=== PATIENT | female | born 1945 | race Caucasian/White ===

== ENCOUNTER 2017-07-13 15:56 | Inpatient (IN) | payer OTHER ==
[2017-07-13] VITALS (26 sets, daily range): BP systolic 70–113; BP diastolic 42–70; PULSE 63–107; TEMP 36.9; O2SAT 71–99; Ht 165.1 cm; Wt 93.5 kg
[~2017-07-13] VITALS: Ht 165.1 cm; Wt 93.5 kg
[~2017-07-13 15:56] MED LIST: ASPI325T39 PO; CHOL100010 PO; MIDAZOLAM HCL 1 MG/ML 2ML VIAL ONE; MULT-506 PO; POTA99TA PO
[2017-07-13] MEDS ORDERED: NITROGLYCERIN/D5W 100MCG/ML 20ML SYR ONE (15:57)
[2017-07-13] MEDS ORDERED: NiCARDipine HCL INJ 2.5 MG/ML 10 ML AMP ONE (15:57)
[2017-07-13] MEDS ORDERED: HEPARIN SOD (PORCINE) 1000 UNIT/ML 10 ML VIAL ONE (15:57)
[2017-07-13] MEDS ORDERED: FENTANYL CITRATE INJ 50 MCG/1 ML 2 ML VIAL ONE (15:57)
[2017-07-13] MEDS ORDERED: CHOL1000 PO (16:20)
[2017-07-13] MEDS ORDERED: LOSA1TAB PO (16:25)
--- NOTE | 2017-07-13 16:41 | EMERGENCY ROOM VISIT NOTE ---
History Report prepared by Bret: Fercho Mckay Under the Supervision of: Dr. Seng Juarez D.O. First contact with patient: 15:54 Chief Complaint: HEART ALERT Stated Complaint: CHEST PAIN, HEART ALERT History of Present Illness The patient is a 72 year old female who presents to the Emergency Room with complaints of constant sharp chest pain beginning 4 hours ago. The patient states that 3 days ago she began to have a headache that is still persistent. She reports that today she was resting when she began to feel sharp chest pains in the middle of her chest. She notes that she called an ambulance and was given 324mg of Aspirin and 1 nitroglycerin en route to the hospital. The patient notes that she has a previous history of hypertension and has had a stress test. She complains of shortness of breath, cough, and cold symptoms. The patient denies any previous heart attack, stroke, cardiac catheterization, diabetes, and is not on any blood thinners. The patient reports she has a family history of heart attack (maternal). She states she does not use alcohol or tobacco. She rates her pain as a 6/10 in severity. Source of History: patient, EMS Onset: 1100 Position: chest Symptom Intensity: 6/10 Quality: sharp Timing: constant Associated Symptoms: + headache (central with no radiation), + cough, + SOB Note: Pt complains of cold symptoms. Review of Systems See HPI for pertinent positives & negatives. A total of 10 systems reviewed and were otherwise negative. Past Medical & Surgical Medical Problems: (1) Arthritis (2) Chronic kidney disease (CKD), stage III (moderate) (3) Dyslipidemia (4) Hypertension (5) Migraine headache Surgical Problems: (1) History of hysterectomy (2) History of tonsillectomy (3) History of tubal ligation (4) Status post cholecystectomy (5) Status post hysterectomy (6) Status post tonsillectomy Family History FH: heart attack Social History Smoking Status: Never Smoker Alcohol Use: occasionally Drug Use: none Marital Status: Housing Status: lives alone Occupation Status: retired Current/Historical Medications Scheduled Aspirin (Aspirin Ec), 325 MG PO DAILY Cholecalciferol (Vitamin D3), 1 TAB PO DAILY Losartan Potassium (Cozaar), 25 MG PO DAILY Multivitamin (Multivitamin), 1 TAB PO DAILY Potassium (Potassium), Unknown Dose PO DAILY Allergies Coded Allergies: Lisinopril (Verified Adverse Reaction, Intermediate, cough, 07/13/17) Physical Exam Vital Signs Date Time Temp Pulse Resp B/P (MAP) Pulse Ox O2 Delivery O2 Flow Rate FiO2 07/13/17 18:31 82 22 88/53 (56) 93 07/13/17 18:30 69 22 94 07/13/17 18:24 85 22 91/57 (72) 07/13/17 18:17 74 22 71/46 (57) 96 07/13/17 18:15 87 22 98 07/13/17 18:01 95/65 (73) 07/13/17 18:00 36.9 76 18 95/65 93 Nasal Cannula 2.0 07/13/17 17:55 82 16 97/58 (71) 93 Room Air 07/13/17 17:40 68 16 116/66 (83) 93 Room Air 07/13/17 16:06 37.0 68 22 100/57 97 Room Air 07/13/17 16:03 64 07/13/17 16:00 97 Room Air 07/13/17 16:00 97 Room Air Physical Exam GENERAL: Patient is awake, alert, and very anxious appearing. Patient is uncomfortable. EYES: The conjunctivae are clear. The pupils are round and reactive. EARS, NOSE, MOUTH AND THROAT: The nose is without any evidence of any deformity. Mucous membranes are moist tongue is midline NECK: The neck is nontender and supple. RESPIRATORY: Normal respiratory effort is noted there is no evidence of wheezing rhonchi or rales CARDIOVASCULAR: Tachycardiac rate and regular rhythm noted there no murmurs rubs or gallops normal S1 normal S2 GASTROINTESTINAL: The abdomen is soft. Bowel sounds are present in all quadrants. Abdomen is nontender MUSCULOSKELETAL/EXTREMITIES: There is no evidence of gross deformity full range of motion is noted in the hips and shoulders. Pedal edema bilaterally. SKIN: There is no obvious evidence of any rash. There are no petechiae, pallor or cyanosis noted. Skin cool and dry bilaterally. NEUROLOGIC: Patient is awake awake, alert, and oriented x3. Medical Decision & Procedures Laboratory Results Test 07/13/17 16:43 Kaolin Activated Coagulation Time 301 SECONDS (94-140) Laboratory results per my review. Medications Administered Medications (Trade) Dose Ordered Sig/Alice Route Start Time Stop Time Status Last Admin Dose Admin Midazolam HCl (Versed Inj) 2 mg STK-MED ONCE .ROUTE 07/13/17 15:56 07/13/17 15:57 DC 07/13/17 17:32 2 MG Fentanyl Citrate (Fentanyl Inj) 100 mcg STK-MED ONCE .ROUTE 07/13/17 15:57 07/13/17 15:58 DC 07/13/17 15:57 50 MCG Heparin Sodium (Porcine) (Heparin Iv Bolus) 10,000 unit STK-MED ONCE .ROUTE 07/13/17 15:57 07/13/17 15:58 DC 07/13/17 17:32 8,000 UNIT Ticagrelor (Brilinta Tab) 180 mg STK-MED ONCE PO 07/13/17 17:34 07/13/17 17:35 DC 07/13/17 17:41 180 MG Sodium Chloride 1,000 ml @ 100 mls/hr Q10H IV 07/13/17 18:30 08/12/17 18:29 07/13/17 18:30 100 MLS/HR ECG Indication: chest pain Rate (beats per minute): 76 Rhythm: normal sinus Findings: ST elevation (persistent elevation from previusly noted ST elevation) , other (3rd degree heart block; persistence of high lateral reciprocal changes ; ST segment elevation in inferior leads with improvement of low lateral ST elevation noted) Comparison ECG Date: 03/08/2016 Change: Prehospital EKG: Normal sinus 76, ST elevation in inferior and lateral leads; reciprocal changes in high lateral leads; findings consistent with acute inferior lateral wall VA. ED Course 1556: The patient was evaluated in room A1. A complete history and physical examination were performed. 1556: Versed Inj 2 mg. 1557: Nitroglycerin/DSw 100 mcg/ml 2,000 mcg, Heparin Sod/Ns 2 units/ml 3,000 units, Cardene IV 25 mg, and Heparin IV Bolus 10,000 units. 1600: I reevaluated and updated the patient. 1630: I discussed the patient's case with Dr. Gutierrez of Cardiology. The patient will be evaluated for further management. 1634: Upon reevaluation, the patient is doing well. I discussed results and treatment plan with the patient. She verbalizes agreement and understanding. I spoke with Dr. Gutierrez of Cardiology. The patient will be evaluated for further management and care. Medical Decision Differential diagnosis: Etiologies such as cardiac ischemia, aortic dissection, pulmonary embolism, pneumonia, pneumothorax, musculoskeletal, infections, pericarditis, myocarditis , esophageal rupture, gastrointestinal, as well as others were entertained. Nursing notes reviewed. Additional history was obtained from the prehospital personnel. The patient is a 72-year-old female who is been having what she describes as upper respiratory symptoms for the last few days. Today she started having chest pressure at rest. She states the pain became much worse. She called 911 and the patient was transported to the emergency department. I received a medical command phone call from the prehospital personnel. They were concerned because the patient's EKG appeared to be consistent with an ST segment elevation VA. I reviewed the patient's EKG and a heart alert was called. The patient received aspirin and nitroglycerin and normal saline solution prior to arrival. Her initial 12-lead EKG upon presentation appear to show continued ST segment elevation but mild improvement in the lateral leads. The patient continued to have discomfort. The patient was evaluated by the mold checker in the emergency department. She was felt to be a good candidate for cardiac catheterization. The patient was taken to the cardiac catheterization unit. The patient received further IV fluids in the emergency department. I discussed the patient's presentation with her. She was aware of the seriousness of her condition. Her EKG did show ST segment elevation but also showed significant Q waves. At this time I feel the patient's symptoms may have been ongoing longer than just this afternoon. She started having signs of cardiac electrical dysfunction with heart block. Likely this is consistent with the patient's acute suspected right-sided coronary lesion. Medication Reconcilliation Current Medication List: was personally reviewed by me Blood Pressure Screening Patient's blood pressure: Elevated blood pressure Blood pressure disposition: Elevated BP felt to be situational Consults Time Called: 1625 Consulting Physician: Dr. Gutierrez - Cardiology Returned Call: 1630 I discussed the patient's case with Dr. Gutierrez of Cardiology. The patient will be evaluated for further management. Impression Primary Impression: VA (myocardial infarction) Additional Impression: Left sided chest pain Scribe Attestation The scribe's documentation has been prepared under my direction and personally reviewed by me in its entirety. I confirm that the note above accurately reflects all work, treatment, procedures, and medical decision making performed by me. Departure Information Dispostion Being Evaluated By Hospitalist Jadon Geiger D.O. (PCP) Forms WORK / SCHOOL INSTRUCTIONS, HOME CARE DOCUMENTATION FORM, IMPORTANT VISIT INFORMATION Patient Instructions My [facility] Problem Qualifiers Primary Impression: VA (myocardial infarction) Myocardial infarction ST status: ST elevation myocardial infarction Involved coronary artery: other inferior wall coronary artery Qualified Codes: I21.19 - ST elevation (STEMI) myocardial infarction involving other coronary artery of inferior wall
[2017-07-13] MEDS ORDERED: TICAGRELOR 90 MG TAB PO ONE (17:34)
[2017-07-13] MEDS ORDERED: NITROGLYCERIN 0.4 MG SL PER TAB CHARGE SL PRN (18:30)
[2017-07-13] MEDS: SODIUM CHLORIDE 0.9% 1000ML 1,000 ML IV SCH (18:30)
[2017-07-13] MEDS ORDERED: ACETAMINOPHEN 325 MG TAB PO PRN (18:30)
[2017-07-13] MEDS ORDERED: SODIUM CHLORIDE 0.9% 1000ML 500 ML IV SCH (19:00)
[2017-07-13] MEDS ORDERED: NURSING VERBAL MED ORDER ONE ×2 (19:00→21:45)
--- NOTE | 2017-07-13 19:28 | History and Physical ---
History & Physical Date & Time of Service: Jul 13, 2017 at 19:25 . Chief Complaint: chest pain . Primary Care Physician: Jadon Mason D.O. . History of Present Illness Source: patient, clinic records, hospital records 72 YO female followed by Dr. Tasneem Kaiser for Internal Medicine. History of hypertension, dyslipidemia, and other problems noted below. Experiencing a severe bitemporal headache for the past 3 days. Developed chest pain this morning around 11:00 while lying in bed. Pain described as midsternal pain, not pleuritic, nonradiating. Symptoms associated with SOB. No associated diaphoresis, nausea, vomiting. Tried nonprescription analgesic without relief. Presented to ED ~ 15:50. EKG demonstrated inferior ST elevation. Heart alert called. Taken to lab specialist where she was found to have stenoses of RCA and circumflex. Drug-eluting stents placed in RCA and circumflex. Admitted to ICU after PCI. Mild residual chest pain at time of my assessment. . Past Medical/Surgical History Medical Problems: (1) Arthritis Status: Chronic (2) Chronic kidney disease (CKD), stage III (moderate) Status: Chronic (3) Dyslipidemia Status: Chronic (4) Hypertension Status: Chronic Surgical Problems: (1) Status post cholecystectomy Status: Chronic (2) Status post hysterectomy Status: Chronic (3) Status post tonsillectomy Status: Chronic . Family History MOTHER Coronary artery disease Cervical cancer Hypertension SISTER Heart disease GRANDFATHER Heart disease GRANDMOTHER Heart disease Social History Smoking Status: Never Smoker Alcohol Use: none Drug Use: none Marital Status: Occupational Status: retired Multi-Drug Resistant Organisms History of MDRO: No Allergies Coded Allergies: Lisinopril (Verified Adverse Reaction, Intermediate, cough, 07/13/17) Home Medications Scheduled Aspirin (Aspirin Ec), 325 MG PO DAILY Cholecalciferol (Vitamin D3), 1 TAB PO DAILY Losartan Potassium (Cozaar), 25 MG PO DAILY Multivitamin (Multivitamin), 1 TAB PO DAILY Potassium (Potassium), Unknown Dose PO DAILY Review of Systems Constitutional: + problem reported (? low grade temp), No weight loss Eyes: + problem reported (blurred vision) ENT: No nasal symptoms, No sore throat Respiratory: + shortness of breath, No cough Cardiovascular: + problem reported (as noted in HPI) Abdomen: + diarrhea (chronic, intermittent), No nausea, No vomiting, No GI bleeding Musculoskeletal: + joint pain (hand) Genitourinary - Female: No dysuria, No hematuria Neurologic: + problem reported (bitemporal headache) Endocrine: No excessive thirst, No excessive urination Hematologic / Lymphatic: + abnormal bleeding/bruising Integumentary: + rash (intermittent) Physical Exam Vital Signs Date Time Temp Pulse Resp B/P (MAP) Pulse Ox O2 Delivery O2 Flow Rate FiO2 07/13/17 17:55 82 16 97/58 (71) 93 Room Air 07/13/17 17:40 68 16 116/66 (83) 93 Room Air 07/13/17 16:06 37.0 68 22 100/57 97 Room Air 07/13/17 16:03 64 07/13/17 16:00 97 Room Air 07/13/17 16:00 97 Room Air General Appearance: WD/WN, no apparent distress Head: normocephalic, atraumatic Eyes: normal inspection, PERRL, EOMI, sclerae normal, + pertinent finding ( conjunctivae clear) ENT: normal ENT inspection, hearing grossly normal, pharynx normal Neck: supple, no adenopathy, thyroid normal, no JVD, trachea midline Respiratory/Chest: lungs clear, no respiratory distress, no accessory muscle use Cardiovascular: + pertinent finding (slightly irregular, I/ systolic murmur at base, no gallop appreciated) Abdomen/GI: normal bowel sounds, non tender, soft, no organomegaly Extremities/Musculoskelatal: normal inspection, no calf tenderness, normal capillary refill Neurologic/Psych: civilian technician II-XII nml as tested (PERRL, EOMI, no facial palsy, no dysarthria), no motor/sensory deficits (grossly intact), alert, normal mood/ affect, oriented x 3 Skin: normal color, warm/dry Lymphatic: no adenopathy (cervical) Diagnostics Laboratory Results Results Past 24 Hours Test 07/13/17 15:54 07/13/17 16:43 Range/Units Creatine Kinase MB Ratio 0-3.0 Kaolin Activated Coagulation Time 301 94-140 SECONDS EKG EKG performed at 15:59 reviewed and demonstrated sinus rhythm with Mobitz I 2nd degree heart block at 80 / minute, ST elevation inferiorly. . Impression Assessment and Plan INFERIOR ST ELEVATION TX PCI of RCA and circumflex with drug-eluting stents performed. Receiving aspirin, ticagrelor, metoprolol, losartan, atorvastatin. Further management per Cardiology. HYPERTENSION Usually managed with losartan. Metoprolol added to regimen. Follow and titrate Rx. DYSLIPIDEMIA Usually managed with fish oil. Check lipid profile. Started on atorvastatin. HEADACHE Recent onset of headaches which patient attributes to migraines. Most recent headache over past few days severe, bitemporal. Has had some blurred vision. Check ESR with morning labs to screen for possible temporal arteritis. Check CT of head when cardiac status allows. Consult Neuro if ongoing concerns. VTE PROPHYLAXIS Initially received IV heparin. Transition to SQ heparin for prophylaxis. DISPOSITION Expected discharge to home. Internal Medicine follow-up with Dr. Tasneem Kaiser. . VTE Prophylaxis VTE Risk Assessment Done? Y/N: Yes Risk Level: Moderate Given or contraindicated: Enoxaparin (Lovenox)SQ, Other Anticoagulation (IV heparin)
[2017-07-13 19:34] LABS: BASO % 0.1 %; BASO ABS # 0.01 K/uL (0-0.2); HEMATOCRIT 39.4 % (37-47); HEMOGLOBIN 13.3 g/dL (12.0-16.0); IG# 0.05 K/uL (0.00-0.02); LYMPH % 8.3 %; LYMPH ABS # 1.21 K/uL (1.2-3.4); MEAN CELL VOLUME 95.2 fL (80-100); MEAN CORPUSCULAR HEMOGLOBIN 32.1 pg (25-34); MEAN CORPUSCULAR HGB CONC 33.8 g/dl (32-36); MEAN PLATELET VOLUME 10.1 fL (7.4-10.4); MONO % 7.8 %; MONO ABS # 1.14 K/uL (0.11-0.59); NEUT % 83.5 %; NEUT ABS # 12.22 K/uL (1.4-6.5); PLATELET COUNT 233 K/uL (130-400); RED CELL DISTRIBUTION WIDTH CV 13.9 % (11.5-14.5); WHITE BLOOD COUNT 14.63 K/uL (4.8-10.8)
--- NOTE | 2017-07-13 19:55 | Critical Care Consultation ---
Critical Care Consultation Date of Consultation: Jul 13, 2017. Attending Physician: Michael Navarro M.D. Reason for Consultation: Code Heart Alert S/P Cardiac Cath History of Present Illness Camille Daniels is a 72-year-old female who presented to the emergency department today for midsternal chest pain at a 6\10 that started today around 11 AM. Patient does not report any associated symptoms such as diaphoresis, nausea, vomiting or shortness of breath. Pain did not radiate up her neck or down her arm. She has recently been suffering a bilateral temporal headache that has not resolved. In route emergency personnel performed EKG which demonstrated ST segment elevation code heart alert was called and upon arrival. Patient did receive 324 mg of oral aspirin and Nitroglycerin/DSw 100 mcg/ml 2, 000 mcg, Heparin Sod/Ns 2 units/ml 3,000 units, Cardene IV 25 mg, and Heparin IV Bolus 10,000 units. Patient was taken for cardiac catheterization by Dr. Gutierrez. Findings in director of cath lab are as follows: LM - Luminal irregularities LAD - 30% proximal to mid disease; 50-60% distal LAD before wraps around apex. Circumflex - Mid 50-60% diffuse disease; Subtotal occlusion of distal circumflex with RAISA 1-2 flow into small distal L-PLBs; Luminal irregularities in moderate caliber OM2 RCA - Acute 100% occlusion of early-mid RCA; post intervention 40-50% distal RCA stenosis; R-PDA with mild diffuse disease. LVEDP - 9 Upon examination this evening pt is sleeping in bed. She denies any ongoing issues aside from her headache of the past couple days. Pain is 3-4/10, at its worst she reports a 6/10. I did speak with Dr. Hensley regarding this earlier, he was suspicious of possible temporal arteritis and placed a sed rate with AM labs. Pt has been defiant at times and was refusing labs earlier in the evening. She denies recent URI symptom that were reported in the ED. The patient denies weight loss, fever, dizziness, muscle weakness, numbness, change in vision, sore throat, chest pain, palpitations, awareness of tachyarrhythmias, leg swelling, shortness of breath, cough, nausea, vomiting, bloody stools, diarrhea, constipation, abdominal pain, other changes in urine or bowel habits. Past Medical/Surgical History Medical Problems: Arthritis Bilateral headache Chronic kidney disease (CKD), stage III (moderate) Dyslipidemia Hypertension Hypotension Surgical Problems: Status post cholecystectomy Status post hysterectomy, oophorectomy Status post tonsillectomy Family History FH: heart attack Social History Smoking Status: Never Smoker Alcohol Use: none Drug Use: none Marital Status: Housing Status: lives alone Occupation Status: retired Allergies Coded Allergies: Broccoli (Verified Adverse Reaction, Intermediate, GI SYMPTOMS, 07/14/17) Cauliflower (Verified Adverse Reaction, Intermediate, GI SYMPTOMS, ) Egg (Verified Adverse Reaction, Intermediate, GI SYMPTOMS, 07/14/17) Gluten (Verified Adverse Reaction, Intermediate, GI SYMPTOMS, 07/14/17) Lactose. (Verified Adverse Reaction, Intermediate, GI SYMPTOMS, 07/14/17) Lisinopril (Verified Adverse Reaction, Intermediate, cough, 07/13/17) [place] (Verified Adverse Reaction, Intermediate, GI SYMPTOMS, 07/14/17) [place] Juice Soy Protein (Verified Adverse Reaction, Intermediate, GI SYMPTOMS, ) Home Medications Scheduled Aspirin (Aspirin Ec), 325 MG PO DAILY Cholecalciferol (Vitamin D3), 1 TAB PO DAILY Losartan Potassium (Cozaar), 25 MG PO DAILY Multivitamin (Multivitamin), 1 TAB PO DAILY Potassium (Potassium), Unknown Dose PO DAILY Current Inpatient Medications Current Inpatient Medications Medications (Trade) Dose Ordered Sig/Alice Route Start Time Stop Time Status Last Admin Dose Admin Nitroglycerin (Nitrostat Tab) 0.4 mg UD PRN SL 07/13/17 18:30 08/12/17 18:29 Sodium Chloride 1,000 ml @ 100 mls/hr Q10H IV 07/13/17 18:30 08/12/17 18:29 07/13/17 18:30 100 MLS/HR Aspirin (Ecotrin Tab) 81 mg QAM PO 07/14/17 09:00 08/13/17 08:59 Atorvastatin Calcium (Lipitor Tab) 80 mg QAM PO 07/14/17 09:00 08/13/17 08:59 Metoprolol Tartrate (Lopressor Tab) 25 mg Q12 PO 07/13/17 21:00 08/12/17 20:59 Acetaminophen (Tylenol Tab) 650 mg Q4H PRN PO 07/13/17 18:30 08/12/17 18:29 Losartan Potassium (coZAAR TAB) 25 mg DAILY PO 07/14/17 09:00 08/13/17 08:59 Multivitamins (Multivitamin Tab) 1 tab DAILY PO 07/14/17 09:00 08/13/17 08:59 Ticagrelor (Brilinta Tab) 90 mg BID PO 07/14/17 07:00 08/13/17 06:59 Review of Systems 12 systems reviewed and negative other than previously mentioned in the HPI. Physical Exam Date Time Temp Pulse Resp B/P (MAP) Pulse Ox O2 Delivery O2 Flow Rate FiO2 07/13/17 19:32 76 20 97/66 (73) 97 07/13/17 19:31 80 20 98/52 (66) 97 07/13/17 19:30 80 20 97 07/13/17 19:17 82 22 98/52 (66) 99 07/13/17 19:15 76 18 97 07/13/17 19:02 91 26 88/49 (66) 96 07/13/17 19:00 74 18 97 07/13/17 18:47 90 21 81/70 (76) 71 07/13/17 18:45 73 18 07/13/17 18:31 82 22 88/53 (56) 93 07/13/17 18:30 69 22 94 07/13/17 18:24 85 22 91/57 (72) 07/13/17 18:17 74 22 71/46 (57) 96 07/13/17 18:15 87 22 98 07/13/17 18:01 95/65 (73) 07/13/17 18:00 36.9 76 18 95/65 93 Nasal Cannula 2.0 07/13/17 17:55 82 16 97/58 (71) 93 Room Air 07/13/17 17:40 68 16 116/66 (83) 93 Room Air 07/13/17 16:06 37.0 68 22 100/57 97 Room Air 07/13/17 16:03 64 07/13/17 16:00 97 Room Air 07/13/17 16:00 97 Room Air Vital Signs - as noted Laboratory Data - as noted Physical Exam: General - NAD Eyes - PERRL, EOMI No icterus, gaze conjugate ENT - Mucosa moist, no lesions or candidiasis Neck - Supple, trachea midline, no masses or lymphadenopathy, no JVD or bruits Lungs - No paradoxical chest wall movement, clear to auscultation bilaterally, no wheezes, rales, or rhonchi Heart - Reg rate and rhythm, Continued ST elevations on telemetry, No murmur, rubs, clicks, or gallops appreciated Abdomen - normoactive BS present, no bruits noted, tympanic to percussion, soft , nontender, nondistended, no organomegaly Extremities - No edema, pedal pulses intact Neuro - A&OX4 Strength extremities equal and appropriate bilaterally Reflexes: normal and equal CN:PERRL, EOMI, no facial asymmetry, uvula/tongue midline Laboratory Results Last 24 Hours Test 07/13/17 15:54 07/13/17 16:43 07/13/17 19:27 Creatine Kinase MB Ratio Kaolin Activated Coagulation Time 301 SECONDS White Blood Count 14.63 K/uL Red Blood Count 4.14 M/uL Hemoglobin 13.3 g/dL Hematocrit 39.4 % Mean Corpuscular Volume 95.2 fL Mean Corpuscular Hemoglobin 32.1 pg Mean Corpuscular Hemoglobin Concent 33.8 g/dl Platelet Count 233 K/uL Mean Platelet Volume 10.1 fL Neutrophils (%) (Auto) 83.5 % Lymphocytes (%) (Auto) 8.3 % Monocytes (%) (Auto) 7.8 % Eosinophils (%) (Auto) 0.0 % Basophils (%) (Auto) 0.1 % Neutrophils # (Auto) 12.22 K/uL Lymphocytes # (Auto) 1.21 K/uL Monocytes # (Auto) 1.14 K/uL Eosinophils # (Auto) 0.00 K/uL Basophils # (Auto) 0.01 K/uL RDW Standard Deviation 48.0 fL RDW Coefficient of Variation 13.9 % Immature Granulocyte % (Auto) 0.3 % Immature Granulocyte # (Auto) 0.05 K/uL Diagnostic Results No imaging to date this admission Assessment & Plan (1) Bilateral headache (2) Hypotension (3) IN (myocardial infarction) (4) Chronic kidney disease (CKD), stage III (moderate) (5) Dyslipidemia (6) Hypertension PLAN: CV: * STEMI; Cardiac Cath Dr Gutierrez; 1 JORGE LUIS to Proximal RCA and 1 Distal Circumflex * Trend Troponin until peaks * Monitor on telemetry * Dopamine Titration per protocol * Dual Antiplatelet therapy x 1yr: Brilinta * ASA, Statin, Metoprolol * Cardiac Rehab Consult * ECHO * Hx of HTN * Hold home Losartan now, resume as blood pressures allow Neuro: * Continue Tylenol for headache * Follow up on sed rate in AM labs for temporal arteritis Resp: * Supplemental oxygen as required Fluids/Renal: * Cr Baseline: 1.1/ Now 1.4 * NSS @ 100mL/hr. hyponatremic 131 Na * No christian at this time. Monitor I&O's * Daily PRP * Monitor electrolytes and replace per protocol ID: Monitor fever curve, leukocytosis GI/Nutrition: * AHA/Gluten Free/Low Lactose Diet * Albumin 3.3 low * AST 190 elevated * Repeat LFTs in AM labs Heme: * H&H: 13.3/39.4; Plts: 233 * Coags: PT/INR: 10.5/1.0; aPTT: 61.6 Endocrine: Accu-Checks per protocol, started insulin infusion for 2 blood sugars greater than 180 or one greater than 250 CCT: 37 Minutes; This time is exclusive of all separately billable procedures. Thank you for involving us in the care of this patient. Please refer to Dr. Derick oCoper's addendum for further recommendations. I have personally evaluated and examined this patient. I agree with assessment and plan of Omar Rushing PA-C. Cardiogenic shock and YESENIA. Continue to wean pressors as tolerated. Problem Qualifiers (1) IN (myocardial infarction): Myocardial infarction ST status: ST elevation myocardial infarction Involved coronary artery: other inferior wall coronary artery Qualified Codes: I21.19 - ST elevation (STEMI) myocardial infarction involving other coronary artery of inferior wall
[2017-07-13 20:06] LABS: ALBUMIN 3.3 gm/dl (3.4-5.0); CALCIUM 8.6 mg/dl (8.5-10.1); CREATININE 1.44 mg/dl (0.60-1.20); POTASSIUM 3.8 mmol/L (3.5-5.1)
[2017-07-13 20:29] LABS: CKMB 41.8 ng/ml (0.5-3.6); TOTAL PROTEIN 7.6 gm/dl (6.4-8.2)
[2017-07-13 20:30] LABS: PTT PATIENT 61.6 SECONDS (21.0-31.0)
[2017-07-13] MEDS: METOPROLOL TARTRATE 25 MG TAB PO SCH (20:47)
--- NOTE | 2017-07-13 21:49 | Pre Sedation Assessment ---
Pre Sedation Assessment General Date of Sedation: Jul 13, 2017. Vital Signs Past 12 Hours Date Time Temp Pulse Resp B/P (MAP) Pulse Ox O2 Delivery O2 Flow Rate FiO2 07/13/17 20:05 88 19 90 07/13/17 20:02 85 19 91/59 (64) 95 07/13/17 20:00 Nasal Cannula 2.0 07/13/17 19:47 81 26 113/42 (66) 98 07/13/17 19:35 63 28 97 07/13/17 19:32 76 20 97/66 (73) 97 07/13/17 19:31 80 20 98/52 (66) 97 07/13/17 19:30 80 20 97 07/13/17 19:17 82 22 98/52 (66) 99 07/13/17 19:15 76 18 97 07/13/17 19:02 91 26 88/49 (66) 96 07/13/17 19:00 74 18 97 07/13/17 18:47 90 21 81/70 (76) 71 07/13/17 18:45 73 18 07/13/17 18:31 82 22 88/53 (56) 93 07/13/17 18:30 69 22 94 07/13/17 18:24 85 22 91/57 (72) 07/13/17 18:17 74 22 71/46 (57) 96 07/13/17 18:15 87 22 98 07/13/17 18:01 95/65 (73) 07/13/17 18:00 36.9 76 18 95/65 93 Nasal Cannula 2.0 07/13/17 17:55 82 16 97/58 (71) 93 Room Air 07/13/17 17:40 68 16 116/66 (83) 93 Room Air 07/13/17 16:06 37.0 68 22 100/57 97 Room Air 07/13/17 16:03 64 07/13/17 16:00 97 Room Air 07/13/17 16:00 97 Room Air Review Cardiovascular: regular rate, rhythm, no edema Lungs: chest non-tender, lungs clear, normal breath sounds Pre-Sedation Airway Assessment Smoking Status: Never Smoker Hx of Sleep Apnea: No Hx of difficult intubation: No Short Thick Neck: No Thyro-mental Distance: > 3 Finger Breadths Oral Cavity: WNL Mallampati Classification: Class II ASA Classification: Class IV Procedure Planning Contraindications for Sedation: None Current Medications Reviewed: Yes Notes The planned sedation has been discussed with the patient. Informed Consent was obtained. I have identified the patient, determined the appropriateness of sedation and have assessed the patient immediately prior to the procedure. All medicine(s) and interventions are by my order.
--- NOTE | 2017-07-13 21:49 | Post Sedation Assessment ---
Post Sedation Assessment General Date of Sedation Jul 13, 2017. Vital Signs: Vital Signs Past 12 Hours Date Time Temp Pulse Resp B/P (MAP) Pulse Ox O2 Delivery O2 Flow Rate FiO2 07/13/17 20:05 88 19 90 07/13/17 20:02 85 19 91/59 (64) 95 07/13/17 20:00 Nasal Cannula 2.0 07/13/17 19:47 81 26 113/42 (66) 98 07/13/17 19:35 63 28 97 07/13/17 19:32 76 20 97/66 (73) 97 07/13/17 19:31 80 20 98/52 (66) 97 07/13/17 19:30 80 20 97 07/13/17 19:17 82 22 98/52 (66) 99 07/13/17 19:15 76 18 97 07/13/17 19:02 91 26 88/49 (66) 96 07/13/17 19:00 74 18 97 07/13/17 18:47 90 21 81/70 (76) 71 07/13/17 18:45 73 18 07/13/17 18:31 82 22 88/53 (56) 93 07/13/17 18:30 69 22 94 07/13/17 18:24 85 22 91/57 (72) 07/13/17 18:17 74 22 71/46 (57) 96 07/13/17 18:15 87 22 98 07/13/17 18:01 95/65 (73) 07/13/17 18:00 36.9 76 18 95/65 93 Nasal Cannula 2.0 07/13/17 17:55 82 16 97/58 (71) 93 Room Air 07/13/17 17:40 68 16 116/66 (83) 93 Room Air 07/13/17 16:06 37.0 68 22 100/57 97 Room Air 07/13/17 16:03 64 07/13/17 16:00 97 Room Air 07/13/17 16:00 97 Room Air Post Procedure Recovery Score Activity: (2) Moves 4 extremities * Respiration: (2) Deep breath/cough Circulation: (2) +/-20% PreAnes Value Consciousness: (2) Fully Awake Oxygen Saturation: (2) > 92% On Room Air Post Anesthesia Score: 10 Discharge Sedation Level of Care: Fast Track Phase II Post Sedation Plan On clinical assessment, the patient appears to have tolerated the sedation without complications. Patient is recovering as anticipated. Patient will continue to be monitored by nursing and may be discharged when sedation discharge criteria are met per below protocol. Upon Completions of procedure and additional 15 minutes continue every 5 minute vital signs and the P.A.R. score; then discharge to a Phase I or Fast Track to Phase II per the following guidelines: * Discharge Patient to appropriate Phase II area if PAR is 8 or greater or return to pre- procedure baseline. The post - procedure orders will be as directed. * If PAR score is less than 8 or not return to pre-procedure baseline then patient will follow Phase I monitoring till PAR is reached for Phase II. The Phase I may be done in procedure room or may call to secure a Phase I area. * If naloxone or flumazenil are used for reversal, hold in Phase I for an additional 60 -120 minutes before discharge to Phase II. Please call the Sedation Physician to re-evaluate and complete post-note for discharge to Phase II area. Do NOT discharge from procedure sedation or Phase 1 until post- sedation evaluation note is complete by procedure /sedation MD Sedation Discharge Instructions to be given to the patient at discharge to home.
[2017-07-13] MEDS: DOPAMINE 400MG / D5W IV PRN (21:58)
[2017-07-13] MEDS ORDERED: METOCLOPRAMIDE HCL INJ 5 MG/ML 2 ML VIAL IV ONE (22:00)
--- NOTE | 2017-07-13 22:06 | Cardiac Catheterization ---
Procedure Note Procedure Date Jul 13, 2017. Pre-Procedure Diagnosis STEMI AUC Score 9 Post-Procedure Diagnosis Severe CAD Procedure(s) Performed Coronary Angiography, Left Heart Cath, Drug Eluting Stent, Femoral Artery Angiography Hiv/Aids Care Nurse Matt Pan Shover(s) Dale Estimated Blood Loss 15 Medication(s) Fentanyl, Heparin, Nicardipine, Nitroglycerin, Versed, Lidocaine 1% Summary of Findings Indication: STEMI/Heart Alert Access: 6Fr right HUMAN RESOURCES REPRESENTATIVE; 6Fr right CFV Catheters: JL4, JR4 guide, pigtail Findings: LM - Luminal irregularities LAD - 30% proximal to mid disease; 50-60% distal LAD before wraps around apex. Circumflex - Mid 50-60% diffuse disease; Subtotal occlusion of distal circumflex with RAISA 1-2 flow into small distal L-PLBs; Luminal irregularities in moderate caliber OM2 RCA - Acute 100% occlusion of early-mid RCA; post intervention 40-50% distal RCA stenosis; R-PDA with mild diffuse disease. LVEDP - 9 -- PCI -- Antithrombotic therapy: Heparin, Ticagrelor Procedure: RCA cannulated with JR4 guide Prowater wire passed across lesion into distal vessel Proximal/early-mid lesion predilated with 2.5 compliant balloon Dilated lesion stented with 2.75 x 28 Xience JORGE LUIS Stent post-dilated with 3.0 noncompliant balloon IC vasodilators administered for spasm Post procedure RAISA 3 flow, stent well expanded with minimal residual stenosis and no apparent cardiac complications. Persistent inferior ST elevations, decision made to proceed with subtotal occlusion of distal circumflex LM cannulated with EBU 3.5 guide Prowater wire passed across lesion into distal L-PLB Stenosis pre-dilated with 2.5 balloon Lesion stented with 2.5 x 18 Xience JORGE LUIS and post-dilated with stent balloon. IC vasodilators administered for spasm Post procedure RAISA 3 flow, stent well expanded with minimal residual stenosis and no apparent cardiac complications. Arterial Closure: TR Band Summary: 1. Inferior STEMI/Occluded early-mid RCA 2. Multi-vessel coronary artery disease - 50% mid, 99% distal circumflex. 3. Normal intracardiac filling pressure 4. Successful PCI of early-mid RCA with one JORGE LUIS (2.75 x 28 Xience JORGE LUIS, post- dilated with 3.0 NC). 5. Successful PCI of distal circumflex with one JORGE LUIS (2.5 x 18 Xience JORGE LUIS) Recommendations: Admit to ICU for continued monitoring Loaded with Ticagrelor 180mg in label maker Continue dual-antiplatelet therapy for 1 year Trend troponins until peak, Check Echo Uptitrate beta-tiffanie/ARB as BP allows High-dose statin Consult cardiac Rehab Hemodynamics Rest Ao: 94/33/58 Final Ao: 92/45/62 LV: 102/9 Recommendations PCI without planned CABG Specimens None Radiation Exposure (mGy) 3838 Contrast (mls) 180 V Fluids (cc crystalloids) 105 Drains None Anesthesia Moderate Procedural Complication(s) None Disposition ICU ACC Data Cardiac Status Clinical evaluation leading to the procedure CAD Presntation: STEMI Anginal Classification: CCS IV Heart Failure: No, NYHA Class: CCS I Cardiogenic Shock w/in 24Hrs: No Cardiac Arrest w/in 24Hrs: No Imaging studies past 6 months: No Stress studies past 6 months: No Diagnostic Status: Emergency Closure Device Percutaneous Entry Location: Femoral (CFV closed with mynx device) Closure Device: StarClose Recommendations: PCI without planned CABG PCI Indication: Immediate PCI for STEMI Lesion Segment Name: Mid RCA Culprit Artery: Yes Stenosis Prior to Rx (%): 100 Chronic Total Occlusion: No IVUS: No FFR: No Pre-Procedure RAISA Flow: 0 Previously Treated Lesion: No Lesion Complexity: Non-High/Non-C Lesion Length (mm): 20 Thrombus Present: Yes Bifurcation Lesion: No Guidewire Across Lesion: Yes Guidewire: Stenosis Post-Procedure (%): 0 Post-Procedure RAISA Flow: 3 Device(s) Deployed: Yes Lesion #2 Segment Name: distal circumflex Culprit Artery: No Stenosis Prior to Rx (%): 99 Chronic Total Occlusion: No IVUS: No FFR: No Pre-Procedure RAISA Flow: 1 Previously Treated Lesion: No Lesion Complexity: Non-High/Non-C Lesion Length (mm): 12 Thrombus Present: No Bifurcation Lesion: No Guidewire Across Lesion: Yes Guidewire: Stenosis Post-Procedure (%): 0 Post-Procedure RAISA Flow: 3 Device(s) Deployed: Yes Intraprocedure Events Significant Dissection: No Perforation: No
[2017-07-14] VITALS (80 sets, daily range): BP systolic 75–148; BP diastolic 46–102; PULSE 60–98; TEMP 36.4–37; O2SAT 89–97
[2017-07-14] MEDS ORDERED: SODIUM CHLORIDE 0.9% 500ML 500 ML IV SCH ×2 (03:00→05:30)
[2017-07-14] MEDS ORDERED: NURSING VERBAL MED ORDER ONE ×2 (03:00→05:15)
[2017-07-14] MEDS: SODIUM CHLORIDE 0.9% 1000ML 1,000 ML IV SCH ×3 (03:09→23:17)
[2017-07-14] MEDS: TICAGRELOR 90 MG TAB PO SCH ×2 (06:26→23:18)
[2017-07-14 06:51] LABS: BASO % 0.1 %; BASO ABS # 0.01 K/uL (0-0.2); IG# 0.07 K/uL (0.00-0.02); LYMPH % 7.3 %; LYMPH ABS # 1.28 K/uL (1.2-3.4); MEAN CELL VOLUME 93.8 fL (80-100); MEAN CORPUSCULAR HEMOGLOBIN 32.2 pg (25-34); MEAN CORPUSCULAR HGB CONC 34.3 g/dl (32-36); MEAN PLATELET VOLUME 10.3 fL (7.4-10.4); MONO % 8.1 %; MONO ABS # 1.42 K/uL (0.11-0.59); NEUT % 84.1 %; PLATELET COUNT 250 K/uL (130-400); RED CELL DISTRIBUTION WIDTH CV 13.7 % (11.5-14.5); RED CELL DISTRIBUTION WIDTH SD 47.2 fL (36.4-46.3); WHITE BLOOD COUNT 17.58 K/uL (4.8-10.8)
[2017-07-14 07:27] LABS: CREATININE 2.12 mg/dl (0.60-1.20); POTASSIUM 4.2 mmol/L (3.5-5.1)
[2017-07-14 07:39] LABS: PHOSPHORUS 4.7 mg/dl (2.5-4.9)
[2017-07-14 07:46] LABS: HEMOGLOBIN A1C 5.4 % (4.5-5.6)
--- NOTE | 2017-07-14 09:26 | Clinical Documentation Query ---
CLINICAL DOCUMENTATION QUERY 72-y/o female with STEMI. Query#1/3 In your clinical opinion is this patient being managed for: (X ) YESENIA ( ) YESENIA with ATN ( ) Not Agree ( ) Other explanation of clinical findings (Please Explain) ( ) Unable to determine (Please Define) ( ) Need to Discuss The medical record reflects the following clinical findings, treatment, and risk factors. Clinical Indicators: BUN 31, Creatinine 2.12, GFR 23.0, Hypotension 76/54 MAP 61. I/O's and nurses note reveal no urine output over last 8hrs. Treatment: Daily PRP's, IVF Boluses, IVF primary Risk Factors: Contrast dye required for cardiac catheterization, [place], Query #2/3 Since midnight 07/14 patient's respiratory status has declined. She has become increasingly hypoxic 89% on 3L and tachypneic as high as 30. In your clinical opinion is this patient being managed for: (X ) Acute respiratory failure with hypoxia ( ) Not Agree ( ) Other explanation of clinical findings (Please Explain) ( ) Unable to determine (Please Define) ( ) Need to Discuss The medical record reflects the following clinical findings, treatment, and risk factors. Clinical Indicators: As above Treatment: O2, ICU hemodynamic monitoring Risk Factors: STEMI, multiple fluid boluses without urine output. Query #3/3 Patient is hypotension failing fluid challenge and requiring IV pressor support. In your clinical opinion is this patient being managed for: (X ) Cardiogenic shock treated with IV Dopamine and IVF bolues. ( ) Not Agree ( ) Other explanation of clinical findings (Please Explain) ( ) Unable to determine (Please Define) ( ) Need to Discuss The medical record reflects the following clinical findings, treatment, and risk factors. Clinical Indicators: unresolved hypotension after IVF challenge. Hypotension of 76/54 MAP 61, Renal failure Treatment: IVF Boluses, IVF primary, IV Dopamine, ICU hemodynamic monitoring. Risk Factors: Age, STEMI, Please clarify and document your clinical opinion in the progress notes and discharge summary. Terms such as "probable", "suspected", "likely", "questionable", "possible", or "still to be ruled out" are acceptable. IF IN AGREEMENT, YOU MUST DOCUMENT ABOVE DIAGNOSTIC STATEMENT IN DAILY PROGRESS NOTES AND DISCHARGE SUMMARY. This document is not part of the patient's record. Thank You, Mark Streeter, RN [phone]
--- NOTE | 2017-07-14 09:28 | Clinical Documentation Query ---
Clinical Documentation Query 72-y/o female with STEMI. Query#1/3 In your clinical opinion is this patient being managed for: ( ) YESENIA ( ) YESENIA with ATN ( ) Not Agree ( ) Other explanation of clinical findings (Please Explain) ( ) Unable to determine (Please Define) ( ) Need to Discuss The medical record reflects the following clinical findings, treatment, and risk factors. Clinical Indicators: BUN 31, Creatinine 2.12, GFR 23.0, Hypotension 76/54 MAP 61. I/O's and nurses note reveal no urine output over last 8hrs. Treatment: Daily PRP's, IVF Boluses, IVF primary Risk Factors: Contrast dye required for cardiac catheterization, [place], Query #2/3 Since midnight 07/14 patient's respiratory status has declined. She has become increasingly hypoxic 89% on 3L and tachypneic as high as 30. In your clinical opinion is this patient being managed for: ( ) Acute respiratory failure with hypoxia ( ) Not Agree ( ) Other explanation of clinical findings (Please Explain) ( ) Unable to determine (Please Define) ( ) Need to Discuss The medical record reflects the following clinical findings, treatment, and risk factors. Clinical Indicators: As above Treatment: O2, ICU hemodynamic monitoring Risk Factors: STEMI, multiple fluid boluses without urine output. Query #3/3 Patient is hypotension failing fluid challenge and requiring IV pressor support. In your clinical opinion is this patient being managed for: ( ) Cardiogenic shock treated with IV Dopamine and IVF bolues. ( ) Not Agree ( ) Other explanation of clinical findings (Please Explain) ( ) Unable to determine (Please Define) ( ) Need to Discuss The medical record reflects the following clinical findings, treatment, and risk factors. Clinical Indicators: unresolved hypotension after IVF challenge. Hypotension of 76/54 MAP 61, Renal failure Treatment: IVF Boluses, IVF primary, IV Dopamine, ICU hemodynamic monitoring. Risk Factors: Age, STEMI, Please clarify and document your clinical opinion in the progress notes and discharge summary. Terms such as "probable", "suspected", "likely", "questionable", "possible", or "still to be ruled out" are acceptable. IF IN AGREEMENT, YOU MUST DOCUMENT ABOVE DIAGNOSTIC STATEMENT IN DAILY PROGRESS NOTES AND DISCHARGE SUMMARY. This document is not part of the patient's record. Thank You, Mark Streeter, RN [phone]
[2017-07-14] MEDS ORDERED: SODIUM CHLORIDE 0.9% 500ML 500 ML IV ONE (09:30)
--- NOTE | 2017-07-14 09:43 | DIAGNOSTIC IMAGING REPORT ---
CHEST ONE VIEW PORTABLE CLINICAL HISTORY: Myocardial infarction COMPARISON STUDY: 03/08/2016 FINDINGS: The heart is mildly enlarged. There is no failure. There is no focal pulmonary consolidation. There are no pleural effusions. There is borderline elevation of the right hemidiaphragm.[ IMPRESSION: No active disease in the chest. Electronically signed by: Kevon Weaver M.D. 07/14/2017 9:42 AM Dictated Date/Time: 07/14/2017 9:41 AM
[2017-07-14] MEDS: ASPIRIN 81 MG ECTAB PO SCH (09:45)
[2017-07-14] MEDS: ATORVASTATIN 40 MG TAB PO SCH (09:46)
[2017-07-14] MEDS: METOPROLOL TARTRATE 25 MG TAB PO SCH (09:46)
[2017-07-14] MEDS: MULTIVITAMIN TAB PO SCH (12:04)
[2017-07-14] MEDS: LOSARTAN POTASSIUM 25 MG TAB PO SCH (12:05)
[2017-07-14] MEDS: DOPAMINE 400MG / D5W IV PRN (12:08)
--- NOTE | 2017-07-14 13:16 | ECHOCARDIOGRAM REPORT ---
*NOTICE TO RECEIVING REPUBLICAN AGENCY This information is strictly Confidential and protected under [place] law. [place] law prohibits you from making any further disclosure of this information unless further disclosure is expressly permitted by the written consent of the person to whom it pertains or is authorized by law. A general authorization for the release of medical or other information is not sufficient for this purpose. Hospital accepts no responsibility if the information is made available to any other person, INCLUDING THE PATIENT. Interpretation Summary * Name: PETER NAGEL Study Date: 07/14/2017 07:43 AM BP: 83/53 mmHg * Patient Location: .MSICU\S\E111\S\1 HR: 85 * : 1945 (M/d/yyyy) Gender: Female Height: 64 in * Age: 72 yrs Ethnicity: [place] Weight: 200 lb * Ordering Physician: Francesco Gutierrez * Referring Physician: Self, Referred * Performed By: Angel Luis Wilson RCS * * Reason For Study: AMI, S/P PCI * BSA: 2.0 m2 * -- Conclusions -- * There is borderline concentric left ventricular hypertrophy. * Left ventricular systolic function is normal. * There are regional wall motion abnormalities as specified. * The right ventricle is mildly dilated. * The right ventricular systolic function is moderate to severely reduced. * Basal portions of the right ventricle appear akinetic * The left atrium is mildly dilated. * There is moderate tricuspid regurgitation. * Right ventricular systolic pressure is normal. * The inferior vena cava is mildly dilated. Procedure Details * A complete two-dimensional transthoracic echocardiogram was performed (2D, M-mode, Doppler and color flow Doppler). Left Ventricle * The left ventricle is normal in size. * There is borderline concentric left ventricular hypertrophy. * Ejection Fraction = 50-55%. * Left ventricular systolic function is normal. * There are regional wall motion abnormalities as specified. * Moderate hypokinesis involving the mostly basal inferior wall. Right Ventricle * The right ventricle is mildly dilated. * The right ventricular systolic function is moderate to severely reduced. Atria * The left atrium is mildly dilated. * Right atrial size is normal. Mitral Valve * The mitral valve anatomy is normal. * Significant mitral regurgitation is absent. Tricuspid Valve * The tricuspid valve anatomy is normal. * There is moderate tricuspid regurgitation. * Right ventricular systolic pressure is normal. Aortic Valve * The aortic valve is normal in structure and function. * The aortic valve is trileaflet. * No hemodynamically significant valvular aortic stenosis. * There is no significant aortic regurgitation. Great Vessels * The aortic root is normal size. Pericardium/Pleural * There is no pericardial effusion. Right Ventricle * Basal portions of the right ventricle appear akinetic Great Vessels * The inferior vena cava is mildly dilated. MMode 2D Measurements and Calculations IVSd 1.2 cm IVSs 1.5 cm LVIDd 3.6 cm LVIDs 2.8 cm LVPWd 1.2 cm LVPWs 1.6 cm IVS/LVPW 0.98 FS 22.7 % EDV(Teich) 55.1 ml ESV(Teich) 29.4 ml EF(Teich) 46.6 % EDV(cubed) 47.4 ml ESV(cubed) 21.8 ml EF(cubed) 53.9 % % IVS thick 29.5 % % LVPW thick 29.5 % LV mass(C)d 142.4 grams LV mass(C)dI 72.8 grams/m\S\2 LV mass(C)s 153.4 grams LV mass(C)sI 78.4 grams/m\S\2 SV(Teich) 25.7 ml SI(Teich) 13.1 ml/m\S\2 SV(cubed) 25.5 ml SI(cubed) 13.0 ml/m\S\2 Ao root diam 3.2 cm Ao root area 8.2 cm\S\2 ACS 1.8 cm LA dimension 4.4 cm asc Aorta Diam 3.1 cm LA/Ao 1.4 LVAd ap4 25.4 cm\S\2 LVLd ap4 7.9 cm EDV(MOD-sp4) 70.0 ml EDV(sp4-el) 68.8 ml LVAs ap4 15.9 cm\S\2 LVLs ap4 7.2 cm ESV(MOD-sp4) 32.0 ml ESV(sp4-el) 29.8 ml EF(MOD-sp4) 54.2 % EF(sp4-el) 56.6 % EDV(MOD-sp2) 91.0 ml ESV(MOD-sp2) 43.0 ml EF(MOD-sp2) 52.7 % SV(MOD-sp4) 37.9 ml SI(MOD-sp4) 19.4 ml/m\S\2 SV(MOD-sp2) 48.0 ml SI(MOD-sp2) 24.5 ml/m\S\2 SV(sp4-el) 39.0 ml SI(sp4-el) 19.9 ml/m\S\2 Doppler Measurements and Calculations MV E max sienna 82.0 cm/sec MV A max sienna 69.6 cm/sec MV E/A 1.2 MV P1/2t max sienna 77.2 cm/sec MV P1/2t 91.0 msec MVA(P1/2t) 2.4 cm\S\2 MV dec slope 248.5 cm/sec\S\2 MV dec time 0.17 sec Ao V2 max 130.4 cm/sec Ao max PG 7.1 mmHg Ao max PG (full) 3.5 mmHg LV V1 max PG 3.5 mmHg LV V1 max 91.5 cm/sec PA V2 max 101.4 cm/sec PA max PG 4.1 mmHg PI max sienna 115.5 cm/sec PI max PG 5.3 mmHg PI dec slope 133.9 cm/sec\S\2 PI P1/2t 252.7 msec TR max sienna 204.6 cm/sec
--- NOTE | 2017-07-14 14:51 | Progress Note ---
Medicine Progress Note Date & Time of Visit: Jul 14, 2017 at 14:33. Subjective Pt was seen and examined Lying in bed with no distress Pt said that she feels much better She said that her headache and chest pain resolved Denies any palpitation, dizziness and SOB Objective Last 8 Hrs Date Time Temp Pulse Resp B/P (MAP) Pulse Ox O2 Delivery O2 Flow Rate FiO2 07/14/17 11:45 Nasal Cannula 3.0 07/14/17 11:32 36.7 98 28 113/73 (86) 94 Nasal Cannula 3.0 07/14/17 11:30 84 21 94 07/14/17 11:01 75 24 126/88 (101) 93 07/14/17 11:00 81 28 96 07/14/17 10:31 83 28 121/79 (93) 94 07/14/17 10:30 82 25 93 07/14/17 10:02 87 22 131/67 (88) 92 07/14/17 10:00 81 26 92 07/14/17 09:32 81 25 119/65 (83) 93 07/14/17 09:30 83 30 91 07/14/17 09:02 93 25 121/61 (81) 92 07/14/17 09:00 85 16 92 07/14/17 08:30 76 24 92 07/14/17 07:50 75 30 76/54 (61) 89 Nasal Cannula 3.0 07/14/17 07:45 60 27 92 07/14/17 07:32 36.5 81 21 75/59 (64) 94 Nasal Cannula 3.0 07/14/17 07:30 Nasal Cannula 3.0 07/14/17 07:30 82 26 94 07/14/17 07:15 71 23 92 07/14/17 07:02 74 25 99/69 (79) 95 07/14/17 07:00 68 25 92 Physical Exam: General- No acute distress Head- atraumatic Eyes- PERRL, EOMI ENT- oropharynx clear Neck- supple, no JVD Lungs- No wheezing Heart- regular rhythm Abdomen- normal bowel sounds, soft Extremities- No calf tenderness Neuro- alert, oriented x 3; PERRL, EOMI; no facial palsy Skin- warm & dry Laboratory Results: Last 24 Hours Test 07/13/17 16:43 07/13/17 19:27 07/14/17 06:42 07/14/17 11:31 Kaolin Activated Coagulation Time 301 SECONDS White Blood Count 14.63 K/uL 17.58 K/uL Red Blood Count 4.14 M/uL 3.73 M/uL Hemoglobin 13.3 g/dL 12.0 g/dL Hematocrit 39.4 % 35.0 % Mean Corpuscular Volume 95.2 fL 93.8 fL Mean Corpuscular Hemoglobin 32.1 pg 32.2 pg Mean Corpuscular Hemoglobin Concent 33.8 g/dl 34.3 g/dl Platelet Count 233 K/uL 250 K/uL Mean Platelet Volume 10.1 fL 10.3 fL Neutrophils (%) (Auto) 83.5 % 84.1 % Lymphocytes (%) (Auto) 8.3 % 7.3 % Monocytes (%) (Auto) 7.8 % 8.1 % Eosinophils (%) (Auto) 0.0 % 0.0 % Basophils (%) (Auto) 0.1 % 0.1 % Neutrophils # (Auto) 12.22 K/uL 14.80 K/uL Lymphocytes # (Auto) 1.21 K/uL 1.28 K/uL Monocytes # (Auto) 1.14 K/uL 1.42 K/uL Eosinophils # (Auto) 0.00 K/uL 0.00 K/uL Basophils # (Auto) 0.01 K/uL 0.01 K/uL RDW Standard Deviation 48.0 fL 47.2 fL RDW Coefficient of Variation 13.9 % 13.7 % Immature Granulocyte % (Auto) 0.3 % 0.4 % Immature Granulocyte # (Auto) 0.05 K/uL 0.07 K/uL Prothrombin Time 10.5 SECONDS Prothromb Time International Ratio 1.0 Activated Partial Thromboplast Time 61.6 SECONDS Partial Thromboplastin Ratio 2.4 Sodium Level 131 mmol/L 133 mmol/L Potassium Level 3.8 mmol/L 4.2 mmol/L Chloride Level 98 mmol/L 101 mmol/L Carbon Dioxide Level 26 mmol/L 20 mmol/L Anion Gap 7.0 mmol/L 12.0 mmol/L Blood Urea Nitrogen 23 mg/dl 31 mg/dl Creatinine 1.44 mg/dl 2.12 mg/dl Est Creatinine Clear Calc Drug Dose 41.6 ml/min 28.3 ml/min Estimated GFR () 42.5 26.7 Estimated GFR (Non- 36.7 23.0 BUN/Creatinine Ratio 15.7 14.5 Random Glucose 98 mg/dl 144 mg/dl Calcium Level 8.6 mg/dl 8.0 mg/dl Total Bilirubin 0.8 mg/dl Direct Bilirubin 0.2 mg/dl Aspartate Amino Transf (AST/SGOT) 190 U/L Alanine Aminotransferase (ALT/SGPT) 56 U/L Alkaline Phosphatase 93 U/L Total Creatine Kinase 982 U/L Creatine Kinase MB 41.8 ng/ml Creatine Kinase MB Ratio 4.3 Troponin I 64.700 ng/ml 39.500 ng/ml Pro-B-Type Natriuretic Peptide 5375 pg/ml Total Protein 7.6 gm/dl Albumin 3.3 gm/dl Lipase 141 U/L Erythrocyte Sedimentation Rate 81 mm/hr Estimated Average Glucose 108 mg/dl Hemoglobin A1c 5.4 % Phosphorus Level 4.7 mg/dl Magnesium Level 2.2 mg/dl Triglycerides Level 151 mg/dl Cholesterol Level 167 mg/dl HDL Cholesterol 42 mg/dl LDL Cholesterol, Calculated 95 mg/dl VLDL Cholesterol, Calculated 30 mg/dl Cholesterol/HDL Ratio 4.0 Bedside Glucose 145 mg/dl Test 07/14/17 14:00 Date/Time Source Procedure Growth Status 07/13/17 18:10 Nasal MRSA DNA Surveillance Screen - Final Specimen Negative for MRSA by DNA Probe Complete Assessment & Plan INFERIOR ST ELEVATION [place] S/P cardiac cath done yesterday by Dr. Gutierrez PCI of RCA and circumflex with drug-eluting stents performed. Continue aspirin, ticagrelor, metoprolol, losartan and atorvastatin. Denies any chest pain Continue monitor Echo showed * There is borderline concentric left ventricular hypertrophy. * Left ventricular systolic function is normal. * There are regional wall motion abnormalities as specified. * The right ventricle is mildly dilated. * The right ventricular systolic function is moderate to severely reduced. * Basal portions of the right ventricle appear akinetic * The left atrium is mildly dilated. * There is moderate tricuspid regurgitation. * Right ventricular systolic pressure is normal. * The inferior vena cava is mildly dilated. HYPERTENSION BP controlled Continue Losartan and metoprolol Monitor BP. DYSLIPIDEMIA LDL 95 Continue statin YESENIA ON CKD STAGE 3 Creatine on admission was 1.4 Creatine worsening today to 2.12 Had contrast yesterday for the emergent cardiac cath Continue IVF If creatine worsening, will get a renal u/s in am Monitor BMP HEADACHE Elevated ESR possible due to recent VT No vision disturbance Doubt temporal arteritis No prednisone due to current VT Headache resolved since yesterday VTE PROPHYLAXIS IV heparin drip d/c Now on Heparin subq DISPOSITION Continue monitor in the ICU Consultants: Envelope Maker [facility]io Current Inpatient Medications: Current Inpatient Medications Medications (Trade) Dose Ordered Sig/Alice Route Start Time Stop Time Status Last Admin Dose Admin Nitroglycerin (Nitrostat Tab) 0.4 mg UD PRN SL 07/13/17 18:30 08/12/17 18:29 Sodium Chloride 1,000 ml @ 100 mls/hr Q10H IV 07/13/17 18:30 08/12/17 18:29 07/14/17 03:09 100 MLS/HR Aspirin (Ecotrin Tab) 81 mg QAM PO 07/14/17 09:00 08/13/17 08:59 07/14/17 09:45 81 MG Atorvastatin Calcium (Lipitor Tab) 80 mg QAM PO 07/14/17 09:00 08/13/17 08:59 07/14/17 09:46 80 MG Metoprolol Tartrate (Lopressor Tab) 25 mg Q12 PO 07/13/17 21:00 08/12/17 20:59 07/14/17 09:46 25 MG Acetaminophen (Tylenol Tab) 650 mg Q4H PRN PO 07/13/17 18:30 08/12/17 18:29 07/13/17 23:40 650 MG Losartan Potassium (coZAAR TAB) 25 mg DAILY PO 07/14/17 09:00 08/13/17 08:59 07/14/17 12:05 25 MG Multivitamins (Multivitamin Tab) 1 tab DAILY PO 07/14/17 09:00 08/13/17 08:59 07/14/17 12:04 1 TAB Ticagrelor (Brilinta Tab) 90 mg BID PO 07/14/17 07:00 08/13/17 06:59 07/14/17 06:26 90 MG Dopamine HCl/ Dextrose 250 ml @ 0 mls/hr Q0M PRN IV 07/13/17 22:00 08/12/17 21:59 07/14/17 12:08 17.3 MLS/HR Heparin Sodium (Porcine) (Heparin Sq 5000 Unit/0.5ml) 5,000 unit Q8 SQ 07/14/17 14:00 08/13/17 13:59
[2017-07-14] MEDS: HEPARIN SOD 5000 UNIT/0.5 ML CARP SQ SCH ×2 (15:16→23:19)
--- NOTE | 2017-07-14 16:08 | Critical Care Progress Note ---
Critical Care Progress Note Date of Service Jul 14, 2017. ICU Day ICU Day Number: [address] Cooper Jasbir Is a 72-year-old female who presented yesterday with ST elevated [place]. She was taking emergently to the cardiac catheterization lab where she underwent PCI with1 JORGE LUIS to Proximal RCA and 1 Distal Circumflex performed by Dr. Gutierrez. Pro today she has had soft blood pressures and currently has a SBP in the mid to upper 90s. She denies any chest pain or shortness breath. Troponin peaked at 64.7 and most recent troponins was 39.5. Patient refused phlebotomy for the next troponin level. Due to blood pressure the patient has consented to central venous catheter placement. We will collect additional lab samples of that time in trend. Patient currently is in what appears to be normal sinus rhythm on telemetry with a rate of 85. She states that earlier she had a little bit of vomiting but has no further nausea or vomiting. She has had one episode of urination with an estimated 150-200 mL of urine. A renal ultrasound is currently pending. The patient has no other current complaints. Objective GENERAL : No acute distress but anxious EYES: No icterus, gaze conjugate. PERRL NOSE: No evidence of epistaxis. MOUTH: No lesions or candidiasis. Upper dentures in place. No appreciation of partials on the lower NECK: Supple. Positive JVD. No appreciation of carotid bruits or stridor LUNGS: CTA B/L, no wheezes, rales or rhonchi. However breath sounds are diminished HEART: Regular, rate controlled. No appreciation of murmurs gallops or rubs ABDOMEN: Soft, NT, ND, BS Present EXTREMITIES: No LE edema, pedal pulses intact NEURO: A&OX3. Anxious Current SOFA Score SOFA Score Response (Comments) Value Platelets (x10) > 150 0 Bilirubin (mg/dL) < 1.2 0 [place] Coma Score 15 0 Level of Hypotension Dopamine < 5 mcq / dobutamine 2 Creatinine (mg/dL) 2.0 - 3.4 2 Total 4 Assessment & Plan ST ELEVATED [place] Taken to cardiac catheterization lab 07/13/[address] Gutierrez 1 JORGE LUIS to Proximal RCA and 1 Distal Circumflex Troponin is trending downward Normal sinus rhythm with a heart rate in the 70s and 80s on telemetry Patient started on Brilinta 90 mg by mouth twice a day Aspirin 81 mg by mouth daily Continue atorvastatin Losartan and metoprolol for hypertension and cardioprotection CARDIOVASCULAR History of hypertension Continue losartan, metoprolol Blood pressure currently low Continue dopamine Central line placement for further management Echocardiogram with wall motion abnormalities, LVEF 50-55%. No significant aortic regurgitation or aortic stenosis Further management per Dr. Gutierrez RENAL Acute on chronic renal failure with a creatinine of 2.12 Currently pending central line placement Consider nephrology consult if no improvement Complete renal ultrasound ordered and pending Follow urine output PULMONARY No history of tobacco abuse No history of pulmonary disease Oxygenating well on room air Follow clinically IV ACCESS PIV in place to right hand Patient refusing further PIV access Patient has agreed to central line. We'll attempt right IJ ENDOCRINE No history of diabetes mellitus or hypothyroidism Random glucose 144 ELECTROLYTES Potassium 4.2 Sodium 133 Calcium 8.0 Magnesium 2.2 Phosphorus 4.7 NEURO Alert and oriented 3 Anxious No focal deficits on exam Patient did report headache yesterday but this is now resolved HEME Hemoglobin 12.0 Hematocrit 35.0 GI No history of GERD DVT PROPHYLAXIS Heparin subcutaneous's every eight hours Continue Brilinta CCT: 40 minutes but inclusive of any procedures Thank you for including us in the care of this patient. Please refer to Dr. Cooper's addendum for further recommendations. I have personally evaluated and examined this patient. I agree with assessment and plan of Susana Malagon PA-C. Placement of right triple lumen catheter for vasoactive medication administration. Renal ultrasound given that the patient has not urinated. Consults & Procedures Consultants: Cardiology - Dr. Gutierrez Procedures: Cardiac catheterization 07/13/2017 - Dr. Gutierrez [facility] Central Line 07/14/2017 IV infusion of fluids Data Medications: Current Inpatient Medications Medications (Trade) Dose Ordered Sig/Alice Route Start Time Stop Time Status Last Admin Dose Admin Nitroglycerin (Nitrostat Tab) 0.4 mg UD PRN SL 07/13/17 18:30 08/12/17 18:29 Sodium Chloride 1,000 ml @ 100 mls/hr Q10H IV 07/13/17 18:30 08/12/17 18:29 07/14/17 15:17 100 MLS/HR Aspirin (Ecotrin Tab) 81 mg QAM PO 07/14/17 09:00 08/13/17 08:59 07/14/17 09:45 81 MG Atorvastatin Calcium (Lipitor Tab) 80 mg QAM PO 07/14/17 09:00 1/20/18 08:59 07/14/17 09:46 80 MG Metoprolol Tartrate (Lopressor Tab) 25 mg Q12 PO 07/13/17 21:00 08/12/17 20:59 07/14/17 09:46 25 MG Acetaminophen (Tylenol Tab) 650 mg Q4H PRN PO 07/13/17 18:30 08/12/17 18:29 07/13/17 23:40 650 MG Losartan Potassium (coZAAR TAB) 25 mg DAILY PO 07/14/17 09:00 08/13/17 08:59 07/14/17 12:05 25 MG Multivitamins (Multivitamin Tab) 1 tab DAILY PO 07/14/17 09:00 08/13/17 08:59 07/14/17 12:04 1 TAB Ticagrelor (Brilinta Tab) 90 mg BID PO 07/14/17 07:00 08/13/17 06:59 07/14/17 06:26 90 MG Dopamine HCl/ Dextrose 250 ml @ 0 mls/hr Q0M PRN IV 07/13/17 22:00 08/12/17 21:59 07/14/17 12:08 17.3 MLS/HR Heparin Sodium (Porcine) (Heparin Sq 5000 Unit/0.5ml) 5,000 unit Q8 SQ 07/14/17 14:00 08/13/17 13:59 07/14/17 15:16 5,000 UNIT I & O: 24-Hour Column 07/15/17 08:00 Intake Total 1626 ml Output Total 100 ml Balance 1526 ml Vital Signs: Date Time Temp Pulse Resp B/P (MAP) Pulse Ox O2 Delivery O2 Flow Rate FiO2 07/14/17 11:45 Nasal Cannula 3.0 07/14/17 11:32 36.7 98 28 113/73 (86) 94 Nasal Cannula 3.0 07/14/17 11:30 84 21 94 07/14/17 11:01 75 24 126/88 (101) 93 07/14/17 11:00 81 28 96 07/14/17 10:31 83 28 121/79 (93) 94 07/14/17 10:30 82 25 93 07/14/17 10:02 87 22 131/67 (88) 92 07/14/17 10:00 81 26 92 12/21/17 09:32 81 25 119/65 (83) 93 07/14/17 09:30 83 30 91 07/14/17 09:02 93 25 121/61 (81) 92 07/14/17 09:00 85 16 92 07/14/17 08:30 76 24 92 07/14/17 07:50 75 30 76/54 (61) 89 Nasal Cannula 3.0 07/14/17 07:45 60 27 92 07/14/17 07:32 36.5 81 21 75/59 (64) 94 Nasal Cannula 3.0 07/14/17 07:30 Nasal Cannula 3.0 07/14/17 07:30 82 26 94 07/14/17 07:15 71 23 92 07/14/17 07:02 74 25 99/69 (79) 95 07/14/17 07:00 68 25 92 07/14/17 06:14 71 25 98/50 (66) 93 Nasal Cannula 3.0 07/14/17 05:32 80 26 83/53 (63) 92 Nasal Cannula 3.0 07/14/17 05:01 76 27 104/53 (70) 92 Nasal Cannula 3.0 07/14/17 04:31 69 26 95/54 (68) 92 Nasal Cannula 3.0 07/14/17 04:01 36.9 76 28 96/64 (75) 91 Nasal Cannula 3.0 07/14/17 04:00 Nasal Cannula 3.0 07/14/17 03:31 89 31 98/66 (77) 91 Nasal Cannula 3.0 07/14/17 03:01 71 28 97/58 (71) 92 Nasal Cannula 3.0 07/14/17 02:02 82 24 81/46 (58) 91 Nasal Cannula 3.0 07/14/17 01:31 91 28 89/57 (68) 91 Nasal Cannula 3.0 07/14/17 01:02 84 19 84/59 (67) 91 Nasal Cannula 3.0 07/14/17 00:31 77 31 95/58 (70) 92 Nasal Cannula 3.0 07/14/17 00:04 37.0 81 22 91/59 (70) 91 Nasal Cannula 3.0 07/14/17 00:00 Nasal Cannula 3.0 07/13/17 22:15 103 23 93 07/13/17 22:14 107 22 105/64 (68) 93 07/13/17 22:01 81 22 70/47 (49) 95 07/13/17 21:45 75 22 95 07/13/17 21:32 73 22 84/52 (57) 96 07/13/17 21:15 85 20 96 07/13/17 20:05 88 19 90 07/13/17 20:02 85 19 91/59 (64) 95 07/13/17 20:00 Nasal Cannula 2.0 07/13/17 19:47 81 26 113/42 (66) 98 07/13/17 19:35 63 28 97 07/13/17 19:32 76 20 97/66 (73) 97 07/13/17 19:31 80 20 98/52 (66) 97 07/13/17 19:30 80 20 97 07/13/17 19:17 82 22 98/52 (66) 99 07/13/17 19:15 76 18 97 07/13/17 19:02 91 26 88/49 (66) 96 07/13/17 19:00 74 18 97 07/13/17 18:47 90 21 81/70 (76) 71 07/13/17 18:45 73 18 07/13/17 18:31 82 22 88/53 (56) 93 07/13/17 18:30 69 22 94 07/13/17 18:24 85 22 91/57 (72) 07/13/17 18:17 74 22 71/46 (57) 96 07/13/17 18:15 87 22 98 07/13/17 18:01 95/65 (73) 07/13/17 18:00 36.9 76 18 95/65 93 Nasal Cannula 2.0 07/13/17 17:55 82 16 97/58 (71) 93 Room Air 07/13/17 17:40 68 16 116/66 (83) 93 Room Air 07/13/17 16:06 37.0 68 22 100/57 97 Room Air 07/13/17 16:03 64 07/13/17 16:00 97 Room Air 07/13/17 16:00 97 Room Air Laboratory Results: Last 24 Hours Test 07/13/17 16:43 07/13/17 19:27 07/14/17 06:42 07/14/17 11:31 Kaolin Activated Coagulation Time 301 SECONDS White Blood Count 14.63 K/uL 17.58 K/uL Red Blood Count 4.14 M/uL 3.73 M/uL Hemoglobin 13.3 g/dL 12.0 g/dL Hematocrit 39.4 % 35.0 % Mean Corpuscular Volume 95.2 fL 93.8 fL Mean Corpuscular Hemoglobin 32.1 pg 32.2 pg Mean Corpuscular Hemoglobin Concent 33.8 g/dl 34.3 g/dl Platelet Count 233 K/uL 250 K/uL Mean Platelet Volume 10.1 fL 10.3 fL Neutrophils (%) (Auto) 83.5 % 84.1 % Lymphocytes (%) (Auto) 8.3 % 7.3 % Monocytes (%) (Auto) 7.8 % 8.1 % Eosinophils (%) (Auto) 0.0 % 0.0 % Basophils (%) (Auto) 0.1 % 0.1 % Neutrophils # (Auto) 12.22 K/uL 14.80 K/uL Lymphocytes # (Auto) 1.21 K/uL 1.28 K/uL Monocytes # (Auto) 1.14 K/uL 1.42 K/uL Eosinophils # (Auto) 0.00 K/uL 0.00 K/uL Basophils # (Auto) 0.01 K/uL 0.01 K/uL RDW Standard Deviation 48.0 fL 47.2 fL RDW Coefficient of Variation 13.9 % 13.7 % Immature Granulocyte % (Auto) 0.3 % 0.4 % Immature Granulocyte # (Auto) 0.05 K/uL 0.07 K/uL Prothrombin Time 10.5 SECONDS Prothromb Time International Ratio 1.0 Activated Partial Thromboplast Time 61.6 SECONDS Partial Thromboplastin Ratio 2.4 Sodium Level 131 mmol/L 133 mmol/L Potassium Level 3.8 mmol/L 4.2 mmol/L Chloride Level 98 mmol/L 101 mmol/L Carbon Dioxide Level 26 mmol/L 20 mmol/L Anion Gap 7.0 mmol/L 12.0 mmol/L Blood Urea Nitrogen 23 mg/dl 31 mg/dl Creatinine 1.44 mg/dl 2.12 mg/dl Est Creatinine Clear Calc Drug Dose 41.6 ml/min 28.3 ml/min Estimated GFR () 42.5 26.7 Estimated GFR (Non- 36.7 23.0 BUN/Creatinine Ratio 15.7 14.5 Random Glucose 98 mg/dl 144 mg/dl Calcium Level 8.6 mg/dl 8.0 mg/dl Total Bilirubin 0.8 mg/dl Direct Bilirubin 0.2 mg/dl Aspartate Amino Transf (AST/SGOT) 190 U/L Alanine Aminotransferase (ALT/SGPT) 56 U/L Alkaline Phosphatase 93 U/L Total Creatine Kinase 982 U/L Creatine Kinase MB 41.8 ng/ml Creatine Kinase MB Ratio 4.3 Troponin I 64.700 ng/ml 39.500 ng/ml Pro-B-Type Natriuretic Peptide 5375 pg/ml Total Protein 7.6 gm/dl Albumin 3.3 gm/dl Lipase 141 U/L Erythrocyte Sedimentation Rate 81 mm/hr Estimated Average Glucose 108 mg/dl Hemoglobin A1c 5.4 % Phosphorus Level 4.7 mg/dl Magnesium Level 2.2 mg/dl Triglycerides Level 151 mg/dl Cholesterol Level 167 mg/dl HDL Cholesterol 42 mg/dl LDL Cholesterol, Calculated 95 mg/dl VLDL Cholesterol, Calculated 30 mg/dl Cholesterol/HDL Ratio 4.0 Bedside Glucose 145 mg/dl Test 07/14/17 14:00 07/14/17 15:32
--- NOTE | 2017-07-14 16:11 | DIAGNOSTIC IMAGING REPORT ---
(RENAL)RETROPERITON COMP CLINICAL HISTORY: 72 years-old Female presenting with No urine output - acute on chronic renal failure. TECHNIQUE: Real-time grayscale and limited color Doppler ultrasound imaging of the kidneys and bladder was performed. COMPARISON: None. FINDINGS: Right kidney: Normal echogenicity. Right kidney measures 10.6 cm. No hydronephrosis. No convincing evidence of calculus or mass. Normal perfusion. Left kidney: Normal echogenicity. Left kidney measures 10.5 cm. No hydronephrosis. No convincing evidence of calculus or mass. Normal perfusion. Bladder: No bladder wall thickening. Bladder volume measures 282 mL. Nonvisualization of the ureteral jets. Other: Hyperechogenicity of hepatic parenchyma suggest steatosis. IMPRESSION: 1. Essentially normal renal ultrasound. No hydronephrosis. Normal prevoid bladder volume. 2. Hepatic steatosis. Electronically signed by: Bulmaro De La Fuente M.D. 07/14/2017 4:10 PM Dictated Date/Time: 07/14/2017 4:08 PM
[2017-07-14] MEDS ORDERED: LORAZEPAM 2 MG/ML 1 ML VIAL IV STA (16:17)
[2017-07-14] MEDS ORDERED: LORAZEPAM 2 MG/ML 1 ML VIAL ONE (16:18)
--- NOTE | 2017-07-14 17:47 | Procedure Note ---
Procedure Note Procedure Date Jul 14, 2017. Central Line Consent obtained: written (obtained by Dr. Cooper) Time of procedure: 17:00 Performed by: physician driver utility worker (Kevin Malagon PA-C) Indications: poor venous access, CVP monitoring Contraindications: other (Recent cardiac catheterization on Brilinta) Prep: chlorhexadine prep, sterile drape, sterile procedures used Anesthesia: lidocaine 1% without epi Volume anesthetic (ml's): 4 Central line lumen: triple Central line location: internal jugular (R) Additional details: percutaneous placement, ultrasound guidance, Selinger technique used, line sutured, good blood return, other (transducer tubing connected with no evidence of pulsation in the line) Complications: none Patient tolerated procedure: well Post-procedure vital signs: reviewed and stable Comments: Ultrasound was used prior to the procedure to visualize right internal jugular and corresponding vessels. A suitable insertion site was identified. Using sterile technique a wheal was made at the site of insertion using ultrasound guidance and 3 mL of 1% lidocaine was injected for local anesthetic. Under ultrasound guidance finder needle was advanced into the right IJ. A guidewire was then passed through the finder needle and visualized with ultrasound in the vein. A small debbie was then made with a #11 scalpel at the site of the guidewire without difficulty.A dilator was then used over the guidewire. The dilator was removed and the triple-lumen catheter was advanced over the wire without difficulty into the vessel. Blood was able be drawn from all three catheter reports. All three ports flushed easily. A chlorhexidine patch was placed at the insertion site and using the enclosed securement clamp the catheter was sutured in place. A sterile dressing was then placed over the central venous catheter hub. A portable chest x-ray wasn't obtained. No pneumothorax was visualized by this provider and there was good placement of the tip of the catheter just above the right atria at the cavoatrial junction of the superior vena cava.
--- NOTE | 2017-07-14 17:50 | DIAGNOSTIC IMAGING REPORT ---
CHEST ONE VIEW PORTABLE HISTORY: Confirm RIJ CVC - R/O pnx COMPARISON: Chest 06/24/2017. FINDINGS: Right jugular central venous catheter terminates in the distal SVC. No pneumothorax. Trace left pleural effusion has improved. No new focal lung consolidations. The heart remains mildly enlarged. No evidence for pulmonary edema. IMPRESSION: 1. Right jugular central venous catheter terminates in the distal SVC. 2. No pneumothorax. 3. Trace left pleural effusion has improved. Electronically signed by: Carlos A Moise M.D. 07/14/2017 5:49 PM Dictated Date/Time: 07/14/2017 5:45 PM
--- NOTE | 2017-07-14 18:06 | Cardiology Follow-Up ---
Subjective Subjective Date of Service: Jul 14, 2017. Pt evaluation today including: conversation w/ patient, physical exam, chart review, lab review, review of studies, conversation w/ email production consultant, review of inpatient medication list Additional Details: No recurrent chest pain. No shortness of breath Nausea/vomiting early this AM. Still with intermittent hypotension requiring fluids/dopamine. Tele reviewed -- intermittent high-degree AV block -- improved this afternoon. Echo reviewed -- preserved overall LV function. base to mid inferior hypokinesis. RV dysfunction. Problem List Medical Problems: (1) ND (myocardial infarction) Status: Acute (2) Vertigo Status: Acute Review of Systems Constitutional: No fever ENT: No hearing loss Respiratory: No cough Cardiac: No chest pain Abdomen: + nausea, + vomiting Heme: No abnormal bleeding/bruising Skin: No rash Objective Vital Signs Last Vital Signs Documentation Date Time Temp Pulse Resp B/P (MAP) Pulse Ox O2 Delivery O2 Flow Rate FiO2 07/14/17 16:00 93 Nasal Cannula 2.0 07/14/17 15:00 36.4 92 20 07/14/17 14:31 116/69 (85) Physical Exam: General Appearance: no apparent distress Neck: supple, no JVD Respiratory/Chest: lungs clear, normal breath sounds, no respiratory distress Cardiovascular: regular rate, rhythm, no murmur Abdomen: normal bowel sounds, non tender, soft Extremities: no pedal edema, + pertinent finding (right groin access site - no hematoma/ecchymosis) Neurologic/Psychiatric: no motor/sensory deficits, alert Skin: normal color, warm/dry Assessment and Plan 1. Inferior STEMI/occluded RCA -- s/p PPCI with JORGE LUIS to proximal to mid RCA 2. Multivessel disease -- s/p PCI with JORGE LUIS to subtotal distal LCx 3. High-degree AVB -- suspect primarily vagal post RCA infarct 4. Cardiogenic shock -- in setting of RV dysfunction/relative bradycardia 5. YESENIA -- post contrast/hypotension Chest pain free, troponin has peaked. Intermittent pressor requirement, starting to make some urine. Less AV block as day has gone on -- Continue aggressive IV fluids -- Hold ARB and beta-tiffanie -- Suspect AV block will continue to resolve -- supportive care with dopamine as needed -- Continue DAPT with ASA/Ticagrelor -- Continue statin -- Appreciate ICU/Hospital medicine teams care. Medications: Current Inpatient Medications Medications (Trade) Dose Ordered Sig/Alice Route Start Time Stop Time Status Last Admin Dose Admin Nitroglycerin (Nitrostat Tab) 0.4 mg UD PRN SL 07/13/17 18:30 08/12/17 18:29 Sodium Chloride 1,000 ml @ 100 mls/hr Q10H IV 07/13/17 18:30 08/12/17 18:29 07/14/17 15:17 100 MLS/HR Aspirin (Ecotrin Tab) 81 mg QAM PO 07/14/17 09:00 08/13/17 08:59 07/14/17 09:45 81 MG Atorvastatin Calcium (Lipitor Tab) 80 mg QAM PO 07/14/17 09:00 08/13/17 08:59 07/14/17 09:46 80 MG Metoprolol Tartrate (Lopressor Tab) 25 mg Q12 PO 07/13/17 21:00 08/12/17 20:59 07/14/17 09:46 25 MG Acetaminophen (Tylenol Tab) 650 mg Q4H PRN PO 07/13/17 18:30 08/12/17 18:29 07/13/17 23:40 650 MG Losartan Potassium (coZAAR TAB) 25 mg DAILY PO 07/14/17 09:00 08/13/17 08:59 07/14/17 12:05 25 MG Multivitamins (Multivitamin Tab) 1 tab DAILY PO 07/14/17 09:00 08/13/17 08:59 07/14/17 12:04 1 TAB Ticagrelor (Brilinta Tab) 90 mg BID PO 07/14/17 07:00 08/13/17 06:59 07/14/17 06:26 90 MG Dopamine HCl/ Dextrose 250 ml @ 0 mls/hr Q0M PRN IV 07/13/17 22:00 08/12/17 21:59 07/14/17 12:08 17.3 MLS/HR Heparin Sodium (Porcine) (Heparin Sq 5000 Unit/0.5ml) 5,000 unit Q8 SQ 07/14/17 14:00 08/13/17 13:59 07/14/17 15:16 5,000 UNIT Lab Results: Test 07/13/17 19:27 07/14/17 06:42 07/14/17 11:31 07/14/17 14:00 Prothrombin Time 10.5 SECONDS (9.0-12.0) Prothromb Time International Ratio 1.0 (0.9-1.1) Activated Partial Thromboplast Time 61.6 SECONDS (21.0-31.0) Partial Thromboplastin Ratio 2.4 Total Bilirubin 0.8 mg/dl (0.2-1) Direct Bilirubin 0.2 mg/dl (0-0.2) Aspartate Amino Transf (AST/SGOT) 190 U/L (15-37) Alanine Aminotransferase (ALT/SGPT) 56 U/L (12-78) Alkaline Phosphatase 93 U/L (45-117) Total Creatine Kinase 982 U/L (26-192) Creatine Kinase MB 41.8 ng/ml (0.5-3.6) Creatine Kinase MB Ratio 4.3 (0-3.0) Pro-B-Type Natriuretic Peptide 5375 pg/ml (0-900) Total Protein 7.6 gm/dl (6.4-8.2) Albumin 3.3 gm/dl (3.4-5.0) Lipase 141 U/L (73-393) RDW Standard Deviation 47.2 fL (36.4-46.3) RDW Coefficient of Variation 13.7 % (11.5-14.5) White Blood Count 17.58 K/uL (4.8-10.8) Red Blood Count 3.73 M/uL (4.2-5.4) Hemoglobin 12.0 g/dL (12.0-16.0) Hematocrit 35.0 % (37-47) Mean Corpuscular Volume 93.8 fL (80-100) Mean Corpuscular Hemoglobin 32.2 pg (25-34) Mean Corpuscular Hemoglobin Concent 34.3 g/dl (32-36) Platelet Count 250 K/uL (130-400) Mean Platelet Volume 10.3 fL (7.4-10.4) Neutrophils (%) (Auto) 84.1 % Lymphocytes (%) (Auto) 7.3 % Monocytes (%) (Auto) 8.1 % Eosinophils (%) (Auto) 0.0 % Basophils (%) (Auto) 0.1 % Neutrophils # (Auto) 14.80 K/uL (1.4-6.5) Lymphocytes # (Auto) 1.28 K/uL (1.2-3.4) Monocytes # (Auto) 1.42 K/uL (0.11-0.59) Eosinophils # (Auto) 0.00 K/uL (0-0.5) Basophils # (Auto) 0.01 K/uL (0-0.2) Immature Granulocyte % (Auto) 0.4 % Immature Granulocyte # (Auto) 0.07 K/uL (0.00-0.02) Erythrocyte Sedimentation Rate 81 mm/hr (0-21) Est Creatinine Clear Calc Drug Dose 28.3 ml/min Estimated Average Glucose 108 mg/dl Hemoglobin A1c 5.4 % (4.5-5.6) Phosphorus Level 4.7 mg/dl (2.5-4.9) Magnesium Level 2.2 mg/dl (1.8-2.4) Triglycerides Level 151 mg/dl (0-150) Cholesterol Level 167 mg/dl (0-200) HDL Cholesterol 42 mg/dl LDL Cholesterol, Calculated 95 mg/dl VLDL Cholesterol, Calculated 30 mg/dl Cholesterol/HDL Ratio 4.0 Bedside Glucose 145 mg/dl (70-90) Test 07/14/17 15:32 Date/Time Source Procedure Growth Status 07/13/17 18:10 Nasal MRSA DNA Surveillance Screen - Final Specimen Negative for MRSA by DNA Probe Complete
[2017-07-14 18:37] LABS: BASO % 0.1 %; BASO ABS # 0.01 K/uL (0-0.2); HEMATOCRIT 32.3 % (37-47); HEMOGLOBIN 10.8 g/dL (12.0-16.0); IG# 0.04 K/uL (0.00-0.02); LYMPH % 10.3 %; LYMPH ABS # 1.23 K/uL (1.2-3.4); MEAN CELL VOLUME 93.9 fL (80-100); MEAN CORPUSCULAR HEMOGLOBIN 31.4 pg (25-34); MEAN PLATELET VOLUME 10.4 fL (7.4-10.4); MONO % 6.3 %; MONO ABS # 0.75 K/uL (0.11-0.59); NEUT ABS # 9.93 K/uL (1.4-6.5); PLATELET COUNT 210 K/uL (130-400); RED CELL DISTRIBUTION WIDTH CV 13.9 % (11.5-14.5); RED CELL DISTRIBUTION WIDTH SD 47.6 fL (36.4-46.3); WHITE BLOOD COUNT 11.96 K/uL (4.8-10.8)
[2017-07-14 18:38] LABS: MEAN CORPUSCULAR HGB CONC 33.4 g/dl (32-36)
[2017-07-14 19:03] LABS: CALCIUM 8.1 mg/dl (8.5-10.1); CREATININE 1.58 mg/dl (0.60-1.20); POTASSIUM 4.1 mmol/L (3.5-5.1)
--- NOTE | 2017-07-14 19:42 | Procedure Note ---
Procedure Note Date of Service Jul 14, 2017. Procedure Note RN reported difficulty drawing from all 3 ports of central line. I removed dressing and removed retention suture. I then used chlorhexidine scrub and sterilized the line and the area. I then was able to withdraw the line 2 cm and secured with a STAT lock. All three ports were then easy draw blood and flush. I then used a sterile dressing after placing a new chlorhexidine disk at the insertion site of the central line. The patient tolerated the procedure well. There was no change in vital signs.
[2017-07-15] VITALS (67 sets, daily range): BP systolic 112–171; BP diastolic 70–108; PULSE 76–103; TEMP 36.3–36.8; O2SAT 80–97
[2017-07-15 05:53] LABS: BASO % 0.1 %; BASO ABS # 0.01 K/uL (0-0.2); HEMATOCRIT 30.5 % (37-47); HEMOGLOBIN 10.3 g/dL (12.0-16.0); IG# 0.04 K/uL (0.00-0.02); LYMPH % 7.4 %; LYMPH ABS # 0.83 K/uL (1.2-3.4); MEAN CELL VOLUME 94.4 fL (80-100); MEAN CORPUSCULAR HEMOGLOBIN 31.9 pg (25-34); MEAN CORPUSCULAR HGB CONC 33.8 g/dl (32-36); MEAN PLATELET VOLUME 10.4 fL (7.4-10.4); MONO % 7.6 %; MONO ABS # 0.85 K/uL (0.11-0.59); NEUT % 84.5 %; NEUT ABS # 9.48 K/uL (1.4-6.5); PLATELET COUNT 192 K/uL (130-400); RED CELL DISTRIBUTION WIDTH CV 14.1 % (11.5-14.5); RED CELL DISTRIBUTION WIDTH SD 48.7 fL (36.4-46.3); WHITE BLOOD COUNT 11.21 K/uL (4.8-10.8)
[2017-07-15 06:29] LABS: CALCIUM 8.1 mg/dl (8.5-10.1); CREATININE 1.28 mg/dl (0.60-1.20)
[2017-07-15 06:31] LABS: PHOSPHORUS 2.9 mg/dl (2.5-4.9)
[2017-07-15] MEDS: TICAGRELOR 90 MG TAB PO SCH ×2 (07:45→20:26)
[2017-07-15] MEDS: ASPIRIN 81 MG ECTAB PO SCH (07:45)
[2017-07-15] MEDS: ATORVASTATIN 40 MG TAB PO SCH (07:45)
[2017-07-15] MEDS: MULTIVITAMIN TAB PO SCH (07:46)
[2017-07-15] MEDS: HEPARIN SOD 5000 UNIT/0.5 ML CARP SQ SCH ×3 (07:47→20:26)
--- NOTE | 2017-07-15 07:52 | Critical Care Progress Note ---
Critical Care Progress Note Date of Service Jul 15, 2017. ICU Day ICU Day Number: [address] Cooper Jasbir Is a 72-year-old female who presented with ST elevated AL. She was taking emergently to the cardiac catheterization lab where she underwent PCI with1 JORGE LUIS to Proximal RCA and 1 Distal Circumflex performed by Dr. Gutierrez on . Yesterday she experienced cardiogenic shock with hypotension. This was treated with Dopamine infusion and boluses of IVF. A right internal jugular 3L CVC was placed for IV support. Patient was alert and oriented throughout the day and was generally asymptomatic. This morning the patient states that she is feeling much better. She has no further chest pain, SOB, back pain. Her nausea and vomiting is resolved. She has no acute complaints. Objective GENERAL : No acute distress but anxious EYES: No icterus, gaze conjugate. PERRL NOSE: No evidence of epistaxis. MOUTH: No lesions or candidiasis. Upper dentures in place. No appreciation of partials on the lower NECK: Supple.No appreciation of carotid bruits or stridor. RIJ triple lumen CVC in place and working well. No erythema or weeping/bleeding at insertion site LUNGS: CTA B/L, no wheezes, rales or rhonchi. However breath sounds are diminished HEART: Regular, rate controlled. No appreciation of murmurs gallops or rubs ABDOMEN: Soft, NT, ND, BS Present EXTREMITIES: No LE edema, pedal pulses intact NEURO: A&OX3. Anxious Current SOFA Score SOFA Score Response (Comments) Value Platelets (x10) > 150 0 Bilirubin (mg/dL) < 1.2 0 Carlotta Coma Score 15 0 Level of Hypotension Dopamine < 5 mcq / dobutamine 2 Creatinine (mg/dL) 2.0 - 3.4 2 Total 4 Assessment & Plan ST ELEVATED AL Taken to cardiac catheterization lab 07/13/[address] Gutierrez 1 JORGE LUIS to Proximal RCA and 1 Distal Circumflex Normal sinus rhythm with a heart rate in the 70s and 80s on telemetry Continue Brilinta 90 mg by mouth twice a day Aspirin 81 mg by mouth daily Continue atorvastatin Losartan and metoprolol for hypertension and cardioprotection CARDIOGENIC SHOCK Profound hypotension requiring Dopamine and IVF boluses Right 3L IJ CVC placed 07/14 MAP is now appropriate Wean off Dopamine Continue close monitoring of I&Os CARDIOVASCULAR History of hypertension Continue losartan, metoprolol Echocardiogram with wall motion abnormalities, LVEF 50-55%. No significant aortic regurgitation or aortic stenosis Further management per Dr. Gutierrez RENAL Acute on chronic renal failure with a creatinine of 2.12 Creatinine now 1.28 Continue to hydrate with IVF Complete renal ultrasound with Hepatic steatosis - otherwise unremarkable Follow strict I&Os Continue to follow serial labs PULMONARY No history of tobacco abuse No history of pulmonary disease Oxygenating well on room air Follow clinically IV ACCESS PIV in place to right hand Patient refusing further PIV access 3L RIL CVC placed 07/14 - all ports working well Caan transfer to telemetry and will ask IV team to remove CVC tomorrow before discharge home ENDOCRINE No history of diabetes mellitus or hypothyroidism Random glucose 96 ELECTROLYTES Balanced Follow serial labs NEURO Alert and oriented 3 Anxiety improved No focal deficits on exam Patient did report headache yesterday but this is now resolved HEME Hemoglobin 10.3 Hematocrit 30.5 Drop in g/dL most likely dilutional from IVF for YESENIA GI No history of GERD DVT PROPHYLAXIS Heparin subcutaneous every eight hours Continue Brilinta CCT: 0 minutes. Level III inpatient follow up Thank you for including us in the care of this patient. Please refer to Dr. Cooper's addendum for further recommendations. I have personally evaluated and examined this patient. I agree with assessment and plan of Susana Black for downgrade out of ICU. Consults & Procedures Consultants: Cardiology - Dr. Gutierrez Procedures: Cardiac catheterization 07/13/2017 - Dr. Gutierrez [facility] Central Line 07/14/2017 - Kevin Malagon PA-C IV infusion of fluids IV Infusion of Dopamine Data Medications: Current Inpatient Medications Medications (Trade) Dose Ordered Sig/Alice Route Start Time Stop Time Status Last Admin Dose Admin Nitroglycerin (Nitrostat Tab) 0.4 mg UD PRN SL 07/13/17 18:30 08/12/17 18:29 Sodium Chloride 1,000 ml @ 100 mls/hr Q10H IV 07/13/17 18:30 08/12/17 18:29 07/14/17 23:17 100 MLS/HR Aspirin (Ecotrin Tab) 81 mg QAM PO 07/14/17 09:00 08/13/17 08:59 07/14/17 09:45 81 MG Atorvastatin Calcium (Lipitor Tab) 80 mg QAM PO 07/14/17 09:00 08/13/17 08:59 07/14/17 09:46 80 MG Metoprolol Tartrate (Lopressor Tab) 25 mg Q12 PO 07/13/17 21:00 08/12/17 20:59 Future Hold 07/14/17 09:46 25 MG Acetaminophen (Tylenol Tab) 650 mg Q4H PRN PO 07/13/17 18:30 08/12/17 18:29 07/13/17 23:40 650 MG Losartan Potassium (coZAAR TAB) 25 mg DAILY PO 07/14/17 09:00 08/13/17 08:59 Future Hold 07/14/17 12:05 25 MG Multivitamins (Multivitamin Tab) 1 tab DAILY PO 07/14/17 09:00 08/13/17 08:59 07/14/17 12:04 1 TAB Ticagrelor (Brilinta Tab) 90 mg BID PO 07/14/17 07:00 08/13/17 06:59 07/14/17 23:18 90 MG Dopamine HCl/ Dextrose 250 ml @ 0 mls/hr Q0M PRN IV 07/13/17 22:00 08/12/17 21:59 07/14/17 12:08 17.3 MLS/HR Heparin Sodium (Porcine) (Heparin Sq 5000 Unit/0.5ml) 5,000 unit Q8 SQ 07/14/17 14:00 08/13/17 13:59 07/14/17 23:19 5,000 UNIT Vital Signs: Date Time Temp Pulse Resp B/P (MAP) Pulse Ox O2 Delivery O2 Flow Rate FiO2 07/15/17 06:31 87 20 154/88 (112) 95 07/15/17 06:26 91 21 152/82 (110) 94 07/15/17 06:10 96 19 152/82 (110) 07/15/17 06:01 89 27 159/103 (121) 07/15/17 05:57 103 22 161/85 (97) 89 07/15/17 05:55 91 20 124/81 (103) 93 07/15/17 05:53 100 12 138/92 (101) 07/15/17 05:31 90 24 140/85 (104) 95 07/15/17 05:01 87 25 161/81 (112) 95 07/15/17 04:31 88 35 130/82 (104) 96 07/15/17 04:31 88 22 130/82 (104) 96 07/15/17 04:01 36.7 89 23 131/81 (113) 94 07/15/17 04:00 Nasal Cannula 3.0 07/15/17 03:31 87 21 132/84 (99) 96 07/15/17 03:01 88 22 126/88 (101) 95 07/15/17 02:31 90 24 125/90 (102) 94 07/15/17 02:01 89 28 139/95 (110) 95 07/15/17 01:31 89 24 129/93 (110) 95 07/15/17 01:14 87 22 130/87 (107) 94 07/15/17 01:02 88 29 130/87 (107) 95 07/15/17 00:32 85 23 96 07/15/17 00:02 36.7 87 29 97 07/15/17 00:01 Nasal Cannula 3.0 07/14/17 23:07 88 24 139/75 (90) 96 07/14/17 22:31 92 26 129/74 (92) 96 07/14/17 22:01 85 27 116/79 (97) 96 07/14/17 21:32 89 23 109/74 (78) 96 07/14/17 21:01 89 31 122/75 (95) 96 07/14/17 20:31 94 24 126/81 (95) 95 07/14/17 20:01 36.6 85 21 99/67 (71) 97 07/14/17 20:00 Nasal Cannula 3.0 07/14/17 19:51 85 16 98/72 (76) 97 07/14/17 19:31 88 21 134/96 (113) 95 07/14/17 19:21 93 24 146/91 (115) 93 07/14/17 19:01 87 25 131/102 (107) 96 07/14/17 17:45 88 28 95 2.0 07/14/17 17:32 90 32 112/66 (81) 93 2.0 07/14/17 17:30 89 24 93 07/14/17 17:16 92 25 126/72 (90) 96 2.0 07/14/17 17:15 92 23 96 07/14/17 17:01 88 30 129/89 (102) 92 2.0 07/14/17 17:00 90 33 94 07/14/17 16:47 91 26 120/82 (95) 91 2.0 07/14/17 16:45 87 22 91 07/14/17 16:32 86 28 129/98 (108) 96 2.0 07/14/17 16:30 90 27 95 07/14/17 16:16 90 21 148/85 (106) 90 2.0 07/14/17 16:15 86 20 91 07/14/17 16:02 90 27 129/85 (100) 94 2.0 07/14/17 16:00 86 24 93 07/14/17 16:00 93 Nasal Cannula 2.0 07/14/17 15:45 84 24 94 07/14/17 15:31 88 25 98/66 (77) 95 2.0 07/14/17 15:30 87 24 94 07/14/17 15:00 36.4 92 20 91 Nasal Cannula 2.0 07/14/17 14:45 87 26 95 07/14/17 14:31 87 31 116/69 (85) 95 Nasal Cannula 2.0 07/14/17 14:30 87 26 95 07/14/17 14:15 84 26 96 Nasal Cannula 2.0 07/14/17 14:01 85 27 99/71 (80) 95 07/14/17 14:00 87 21 92 Nasal Cannula 2.0 07/14/17 13:45 85 24 94 07/14/17 13:31 84 25 119/69 (86) 94 07/14/17 13:30 83 24 94 07/14/17 13:15 86 29 95 07/14/17 13:01 85 26 105/70 (82) 94 07/14/17 13:00 84 27 93 07/14/17 12:45 84 25 94 07/14/17 12:31 86 25 103/76 (85) 94 07/14/17 12:30 86 25 95 07/14/17 12:15 82 24 95 07/14/17 12:01 84 26 133/67 (89) 93 07/14/17 12:00 88 26 95 07/14/17 11:45 Nasal Cannula 3.0 07/14/17 11:32 36.7 98 28 113/73 (86) 94 Nasal Cannula 3.0 07/14/17 11:30 84 21 94 07/14/17 11:01 75 24 126/88 (101) 93 07/14/17 11:00 81 28 96 07/14/17 10:31 83 28 121/79 (93) 94 07/14/17 10:30 82 25 93 07/14/17 10:02 87 22 131/67 (88) 92 07/14/17 10:00 81 26 92 07/14/17 09:32 81 25 119/65 (83) 93 07/14/17 09:30 83 30 91 07/14/17 09:02 93 25 121/61 (81) 92 07/14/17 09:00 85 16 92 07/14/17 08:30 76 24 92 07/14/17 07:50 75 30 76/54 (61) 89 Nasal Cannula 3.0 07/14/17 07:45 60 27 92 Laboratory Results: Last 24 Hours Test 07/14/17 11:31 07/14/17 18:15 07/15/17 05:34 Bedside Glucose 145 mg/dl White Blood Count 11.96 K/uL 11.21 K/uL Red Blood Count 3.44 M/uL 3.23 M/uL Hemoglobin 10.8 g/dL 10.3 g/dL Hematocrit 32.3 % 30.5 % Mean Corpuscular Volume 93.9 fL 94.4 fL Mean Corpuscular Hemoglobin 31.4 pg 31.9 pg Mean Corpuscular Hemoglobin Concent 33.4 g/dl 33.8 g/dl Platelet Count 210 K/uL 192 K/uL Mean Platelet Volume 10.4 fL 10.4 fL Neutrophils (%) (Auto) 83.0 % 84.5 % Lymphocytes (%) (Auto) 10.3 % 7.4 % Monocytes (%) (Auto) 6.3 % 7.6 % Eosinophils (%) (Auto) 0.0 % 0.0 % Basophils (%) (Auto) 0.1 % 0.1 % Neutrophils # (Auto) 9.93 K/uL 9.48 K/uL Lymphocytes # (Auto) 1.23 K/uL 0.83 K/uL Monocytes # (Auto) 0.75 K/uL 0.85 K/uL Eosinophils # (Auto) 0.00 K/uL 0.00 K/uL Basophils # (Auto) 0.01 K/uL 0.01 K/uL RDW Standard Deviation 47.6 fL 48.7 fL RDW Coefficient of Variation 13.9 % 14.1 % Immature Granulocyte % (Auto) 0.3 % 0.4 % Immature Granulocyte # (Auto) 0.04 K/uL 0.04 K/uL Sodium Level 132 mmol/L 135 mmol/L Potassium Level 4.1 mmol/L 4.0 mmol/L Chloride Level 101 mmol/L 104 mmol/L Carbon Dioxide Level 23 mmol/L 20 mmol/L Anion Gap 8.0 mmol/L 11.0 mmol/L Blood Urea Nitrogen 38 mg/dl 38 mg/dl Creatinine 1.58 mg/dl 1.28 mg/dl Est Creatinine Clear Calc Drug Dose 37.9 ml/min 46.8 ml/min Estimated GFR () 38.0 49.0 Estimated GFR (Non- 32.8 42.3 BUN/Creatinine Ratio 23.8 29.8 Random Glucose 137 mg/dl 96 mg/dl Lactic Acid Level 1.3 mmol/L Calcium Level 8.1 mg/dl 8.1 mg/dl Troponin I 28.000 ng/ml Phosphorus Level 2.9 mg/dl Magnesium Level 2.3 mg/dl
[2017-07-15] MEDS: SODIUM CHLORIDE 0.9% 1000ML 1,000 ML IV SCH ×2 (09:31→18:38)
--- NOTE | 2017-07-15 16:40 | Cardiology Follow-Up ---
Subjective Subjective Date of Service: Jul 15, 2017. Pt evaluation today including: conversation w/ patient, physical exam, chart review, lab review, review of studies, review of inpatient medication list Additional Details: Patient reports feeling fatigued this morning. Mild chest discomfort when takes a deep breath in. No significant shortness of breath. Tele reviewed -- no events ECGs reviewed -- persistent inferior ST elevations, q waves. No new significant changes. Problem List Medical Problems: (1) NC (myocardial infarction) Status: Acute (2) Vertigo Status: Acute Review of Systems Constitutional: No fever ENT: No hearing loss Respiratory: No cough Cardiac: + see HPI Heme: No abnormal bleeding/bruising Skin: No rash Objective Vital Signs Last Vital Signs Documentation Date Time Temp Pulse Resp B/P (MAP) Pulse Ox O2 Delivery O2 Flow Rate FiO2 07/15/17 16:02 87 23 123/108 (113) 97 07/15/17 16:00 36.7 07/15/17 16:00 Room Air 07/15/17 04:00 3.0 Physical Exam: General Appearance: no apparent distress Neck: supple, no JVD Respiratory/Chest: lungs clear, normal breath sounds, no respiratory distress Cardiovascular: regular rate, rhythm, no murmur Abdomen: normal bowel sounds, non tender, soft Extremities: no pedal edema, + pertinent finding (right groin access site - no hematoma/ecchymosis) Neurologic/Psychiatric: no motor/sensory deficits, alert Skin: normal color, warm/dry Assessment and Plan 1. Inferior STEMI/occluded RCA -- s/p PPCI with JORGE LUIS to proximal to mid RCA 2. Multivessel disease -- s/p PCI with JORGE LUIS to subtotal distal LCx 3. High-degree AVB -- improved 4. Cardiogenic shock -- in setting of RV dysfunction/relative bradycardia -- off dopamine 5. YESENIA -- post contrast/hypotension - improving Minimal chest discomfort which sounds more consistent with post NC pericarditis Hemodynamically and electrically stable off dopamine. Improved renal function/urine output. -- Resume beta-tiffanie/ARB -- Continue DAPT with ASA/Ticagrelor -- Continue statin -- OK with transfer to telemetry today. -- Appreciate ICU/Hospital medicine teams care. Medications: Current Inpatient Medications Medications (Trade) Dose Ordered Sig/Alice Route Start Time Stop Time Status Last Admin Dose Admin Nitroglycerin (Nitrostat Tab) 0.4 mg UD PRN SL 07/13/17 18:30 08/12/17 18:29 Sodium Chloride 1,000 ml @ 100 mls/hr Q10H IV 07/13/17 18:30 08/12/17 18:29 07/15/17 09:31 100 MLS/HR Aspirin (Ecotrin Tab) 81 mg QAM PO 07/14/17 09:00 08/13/17 08:59 07/15/17 07:45 81 MG Atorvastatin Calcium (Lipitor Tab) 80 mg QAM PO 07/14/17 09:00 08/13/17 08:59 07/15/17 07:45 80 MG Metoprolol Tartrate (Lopressor Tab) 25 mg Q12 PO 07/13/17 21:00 08/12/17 20:59 Future Hold 07/14/17 09:46 25 MG Acetaminophen (Tylenol Tab) 650 mg Q4H PRN PO 07/13/17 18:30 08/12/17 18:29 07/13/17 23:40 650 MG Losartan Potassium (coZAAR TAB) 25 mg DAILY PO 07/14/17 09:00 08/13/17 08:59 Future Hold 07/14/17 12:05 25 MG Multivitamins (Multivitamin Tab) 1 tab DAILY PO 07/14/17 09:00 08/13/17 08:59 07/15/17 07:46 1 TAB Ticagrelor (Brilinta Tab) 90 mg BID PO 07/14/17 07:00 08/13/17 06:59 07/15/17 07:45 90 MG Heparin Sodium (Porcine) (Heparin Sq 5000 Unit/0.5ml) 5,000 unit Q8 SQ 07/14/17 14:00 08/13/17 13:59 07/15/17 13:50 5,000 UNIT Lab Results: 07/15/17 05:34 Red Blood Count 3.23, Mean Corpuscular Volume 94.4, Mean Corpuscular Hemoglobin 31.9, Mean Corpuscular Hemoglobin Concent 33.8, Mean Platelet Volume 10.4, Neutrophils (%) (Auto) 84.5, Lymphocytes (%) (Auto) 7.4, Monocytes (%) (Auto) 7.6, Eosinophils (%) (Auto) 0.0, Basophils (%) (Auto) 0.1, Neutrophils # (Auto) 9.48, Lymphocytes # (Auto) 0.83, Monocytes # (Auto) 0.85, Eosinophils # (Auto) 0.00, Basophils # (Auto) 0.01 07/15/17 05:34 Test 07/14/17 18:15 07/15/17 05:34 Lactic Acid Level 1.3 mmol/L (0.4-2.0) Troponin I 28.000 ng/ml (0-0.045) White Blood Count 11.21 K/uL (4.8-10.8) Red Blood Count 3.23 M/uL (4.2-5.4) Hemoglobin 10.3 g/dL (12.0-16.0) Hematocrit 30.5 % (37-47) Mean Corpuscular Volume 94.4 fL (80-100) Mean Corpuscular Hemoglobin 31.9 pg (25-34) Mean Corpuscular Hemoglobin Concent 33.8 g/dl (32-36) Platelet Count 192 K/uL (130-400) Mean Platelet Volume 10.4 fL (7.4-10.4) Neutrophils (%) (Auto) 84.5 % Lymphocytes (%) (Auto) 7.4 % Monocytes (%) (Auto) 7.6 % Eosinophils (%) (Auto) 0.0 % Basophils (%) (Auto) 0.1 % Neutrophils # (Auto) 9.48 K/uL (1.4-6.5) Lymphocytes # (Auto) 0.83 K/uL (1.2-3.4) Monocytes # (Auto) 0.85 K/uL (0.11-0.59) Eosinophils # (Auto) 0.00 K/uL (0-0.5) Basophils # (Auto) 0.01 K/uL (0-0.2) RDW Standard Deviation 48.7 fL (36.4-46.3) RDW Coefficient of Variation 14.1 % (11.5-14.5) Immature Granulocyte % (Auto) 0.4 % Immature Granulocyte # (Auto) 0.04 K/uL (0.00-0.02) Anion Gap 11.0 mmol/L (3-11) Est Creatinine Clear Calc Drug Dose 46.8 ml/min Estimated GFR () 49.0 Estimated GFR (Non- 42.3 BUN/Creatinine Ratio 29.8 (10-20) Calcium Level 8.1 mg/dl (8.5-10.1) Phosphorus Level 2.9 mg/dl (2.5-4.9) Magnesium Level 2.3 mg/dl (1.8-2.4) Date/Time Source Procedure Growth Status 07/14/17 20:35 Stool C.difficile Toxin B Gene (PCR) - Final No C. difficile toxin B gene detected Complete
--- NOTE | 2017-07-15 19:32 | Progress Note ---
Medicine Progress Note Date & Time of Visit: Jul 15, 2017 at 15:17. Subjective Pt was seen and examined Sitting in chair with no distress Pt said that she feels better today Denies any chest pain, palpitation, dizziness and SOB Objective Last 8 Hrs Date Time Temp Pulse Resp B/P (MAP) Pulse Ox O2 Delivery O2 Flow Rate FiO2 07/15/17 18:00 88 20 139/89 93 07/15/17 16:02 87 23 123/108 (113) 97 07/15/17 16:00 36.7 76 19 96 07/15/17 16:00 Room Air 07/15/17 15:32 90 26 171/82 (100) 07/15/17 15:30 91 31 96 07/15/17 15:01 87 0 112/79 (85) 94 07/15/17 15:00 86 5 92 07/15/17 14:32 84 10 114/77 (87) 90 07/15/17 14:30 86 25 96 07/15/17 14:02 85 27 126/87 (108) 88 07/15/17 14:02 85 27 126/87 (108) 88 07/15/17 14:00 88 25 95 07/15/17 14:00 88 25 95 07/15/17 13:45 90 24 97 07/15/17 13:31 87 24 165/77 (82) 94 07/15/17 13:30 87 23 95 07/15/17 13:15 90 26 94 07/15/17 13:01 89 24 150/84 (96) 95 07/15/17 13:00 88 25 94 07/15/17 12:45 89 25 95 07/15/17 12:31 90 26 143/83 (105) 95 07/15/17 12:30 79 30 80 07/15/17 12:15 93 26 94 07/15/17 12:02 144/89 (104) 07/15/17 12:02 87 25 144/89 (104) 95 07/15/17 12:00 36.6 85 26 94 07/15/17 12:00 85 26 94 07/15/17 12:00 Room Air 07/15/17 11:32 86 25 155/86 (91) 95 Physical Exam: General- No acute distress Head- atraumatic Eyes- PERRL, EOMI ENT- oropharynx clear Neck- supple, no JVD Lungs- No wheezing Heart- regular rhythm Abdomen- normal bowel sounds, soft Extremities- No calf tenderness Neuro- alert, oriented x 3; PERRL, EOMI; no facial palsy Skin- warm & dry Laboratory Results: Last 24 Hours Test 07/15/17 05:34 White Blood Count 11.21 K/uL Red Blood Count 3.23 M/uL Hemoglobin 10.3 g/dL Hematocrit 30.5 % Mean Corpuscular Volume 94.4 fL Mean Corpuscular Hemoglobin 31.9 pg Mean Corpuscular Hemoglobin Concent 33.8 g/dl Platelet Count 192 K/uL Mean Platelet Volume 10.4 fL Neutrophils (%) (Auto) 84.5 % Lymphocytes (%) (Auto) 7.4 % Monocytes (%) (Auto) 7.6 % Eosinophils (%) (Auto) 0.0 % Basophils (%) (Auto) 0.1 % Neutrophils # (Auto) 9.48 K/uL Lymphocytes # (Auto) 0.83 K/uL Monocytes # (Auto) 0.85 K/uL Eosinophils # (Auto) 0.00 K/uL Basophils # (Auto) 0.01 K/uL RDW Standard Deviation 48.7 fL RDW Coefficient of Variation 14.1 % Immature Granulocyte % (Auto) 0.4 % Immature Granulocyte # (Auto) 0.04 K/uL Sodium Level 135 mmol/L Potassium Level 4.0 mmol/L Chloride Level 104 mmol/L Carbon Dioxide Level 20 mmol/L Anion Gap 11.0 mmol/L Blood Urea Nitrogen 38 mg/dl Creatinine 1.28 mg/dl Est Creatinine Clear Calc Drug Dose 46.8 ml/min Estimated GFR () 49.0 Estimated GFR (Non- 42.3 BUN/Creatinine Ratio 29.8 Random Glucose 96 mg/dl Calcium Level 8.1 mg/dl Phosphorus Level 2.9 mg/dl Magnesium Level 2.3 mg/dl Date/Time Source Procedure Growth Status 07/14/17 20:35 Stool C.difficile Toxin B Gene (PCR) - Final No C. difficile toxin B gene detected Complete Assessment & Plan INFERIOR [facility] ELEVATION [place] S/P cardiac cath done yesterday by Dr. Gutierrez PCI of RCA and circumflex with drug-eluting stents performed. Continue aspirin, ticagrelor and atorvastatin. Resumed metoprolol and losartan Denies any chest pain No arrhythmia on monitor clinically stable Continue monitor Echo showed * There is borderline concentric left ventricular hypertrophy. * Left ventricular systolic function is normal. * There are regional wall motion abnormalities as specified. * The right ventricle is mildly dilated. * The right ventricular systolic function is moderate to severely reduced. * Basal portions of the right ventricle appear akinetic * The left atrium is mildly dilated. * There is moderate tricuspid regurgitation. * Right ventricular systolic pressure is normal. * The inferior vena cava is mildly dilated. CARDIOGENIC SHOCK Developed hypotension that was required Dobutamine Dopamine was D/C Continue IVF HYPERTENSION BP controlled Losartan and metoprolol resumed Monitor BP. DYSLIPIDEMIA LDL 95 Continue statin YESENIA ON CKD STAGE 3 Creatine on admission was 1.4 Creatine improved to 1.2 today Had contrast yesterday for the emergent cardiac cath Continue IVF Monitor BMP HEADACHE Elevated ESR possible due to recent [place] No vision disturbance Doubt temporal arteritis No prednisone due to current [place] Headache resolved since yesterday Stable VTE PROPHYLAXIS On heparin subq DISPOSITION Will transfer to telemetry Consultants: Senior Actuarial Analyst Cardio Current Inpatient Medications: Current Inpatient Medications Medications (Trade) Dose Ordered Sig/Alice Route Start Time Stop Time Status Last Admin Dose Admin Nitroglycerin (Nitrostat Tab) 0.4 mg UD PRN SL 07/13/17 18:30 08/12/17 18:29 Sodium Chloride 1,000 ml @ 100 mls/hr Q10H IV 07/13/17 18:30 08/12/17 18:29 07/15/17 18:38 100 MLS/HR Aspirin (Ecotrin Tab) 81 mg QAM PO 07/14/17 09:00 08/13/17 08:59 07/15/17 07:45 81 MG Atorvastatin Calcium (Lipitor Tab) 80 mg QAM PO 07/14/17 09:00 08/13/17 08:59 07/15/17 07:45 80 MG Metoprolol Tartrate (Lopressor Tab) 25 mg Q12 PO 07/13/17 21:00 08/12/17 20:59 Future hold 07/14/17 09:46 25 MG Acetaminophen (Tylenol Tab) 650 mg Q4H PRN PO 07/13/17 18:30 08/12/17 18:29 07/13/17 23:40 650 MG Losartan Potassium (coZAAR TAB) 25 mg DAILY PO 07/14/17 09:00 08/13/17 08:59 Future hold 07/14/17 12:05 25 MG Multivitamins (Multivitamin Tab) 1 tab DAILY PO 07/14/17 09:00 08/13/17 08:59 07/15/17 07:46 1 TAB Ticagrelor (Brilinta Tab) 90 mg BID PO 07/14/17 07:00 08/13/17 06:59 07/15/17 07:45 90 MG Heparin Sodium (Porcine) (Heparin Sq 5000 Unit/0.5ml) 5,000 unit Q8 SQ 07/14/17 14:00 08/13/17 13:59 07/15/17 13:50 5,000 UNIT
[2017-07-16 03:35] VITALS: BP 123/73; PULSE 84; TEMP 37; O2SAT 94
[2017-07-16] MEDS: HEPARIN SOD 5000 UNIT/0.5 ML CARP SQ SCH ×2 (06:00→20:52)
[2017-07-16] MEDS: SODIUM CHLORIDE 0.9% 1000ML 1,000 ML IV SCH (06:20)
[2017-07-16 07:54] VITALS: BP 157/95; PULSE 84; TEMP 37; O2SAT 94
[2017-07-16 07:56] LABS: EOS % 0.4 %; EOS ABS # 0.03 K/uL (0-0.5); HEMATOCRIT 29.3 % (37-47); HEMOGLOBIN 9.8 g/dL (12.0-16.0); IG# 0.01 K/uL (0.00-0.02); LYMPH % 9.4 %; MEAN CELL VOLUME 94.2 fL (80-100); MEAN CORPUSCULAR HEMOGLOBIN 31.5 pg (25-34); MEAN CORPUSCULAR HGB CONC 33.4 g/dl (32-36); MEAN PLATELET VOLUME 10.5 fL (7.4-10.4); MONO % 8.2 %; MONO ABS # 0.61 K/uL (0.11-0.59); NEUT % 81.9 %; NEUT ABS # 6.12 K/uL (1.4-6.5); PLATELET COUNT 206 K/uL (130-400); RED CELL DISTRIBUTION WIDTH CV 14.2 % (11.5-14.5); RED CELL DISTRIBUTION WIDTH SD 48.8 fL (36.4-46.3); WHITE BLOOD COUNT 7.47 K/uL (4.8-10.8)
[2017-07-16] MEDS: ATORVASTATIN 40 MG TAB PO SCH (08:13)
[2017-07-16] MEDS: MULTIVITAMIN TAB PO SCH (08:13)
[2017-07-16] MEDS: ASPIRIN 81 MG ECTAB PO SCH (08:13)
[2017-07-16] MEDS: TICAGRELOR 90 MG TAB PO SCH ×2 (08:14→20:51)
[2017-07-16 08:30] LABS: CREATININE 0.96 mg/dl (0.60-1.20); PHOSPHORUS 2.5 mg/dl (2.5-4.9); POTASSIUM 3.9 mmol/L (3.5-5.1)
[2017-07-16] MEDS: LOSARTAN POTASSIUM 25 MG TAB PO SCH (09:36)
[2017-07-16] MEDS: METOPROLOL TARTRATE 25 MG TAB PO SCH ×2 (09:36→20:51)
--- NOTE | 2017-07-16 11:38 | Cardiology Follow-Up ---
Subjective Subjective Date of Service: Jul 16, 2017. Pt evaluation today including: conversation w/ patient, physical exam, chart review, lab review, review of studies, review of inpatient medication list Additional Details: Up walking halls this morning. Reports more shortness of breath. Denies chest pain. Mild epistaxis this AM Tele -- brief episodes of 2:1 AV block ? mobitz type II I/O -- + 2700 yesterday Problem List Medical Problems: (1) [place] (myocardial infarction) Status: Acute (2) Vertigo Status: Acute Review of Systems Constitutional: No fever ENT: No hearing loss Respiratory: No cough Cardiac: + see HPI Heme: No abnormal bleeding/bruising Skin: No rash Objective Vital Signs Last Vital Signs Documentation Date Time Temp Pulse Resp B/P (MAP) Pulse Ox O2 Delivery O2 Flow Rate FiO2 07/16/17 07:54 37.0 84 20 157/95 (115) 94 Room Air 07/15/17 04:00 3.0 Physical Exam: General Appearance: no apparent distress Neck: supple, + JVD (~9) Respiratory/Chest: normal breath sounds, + decreased breath sounds (decreased at bases bilat) Cardiovascular: regular rate, rhythm, no murmur, + pertinent finding (trace edema bilaterally) Abdomen: normal bowel sounds, non tender, soft Extremities: + pertinent finding (right groin access site - no hematoma/ ecchymosis) Neurologic/Psychiatric: no motor/sensory deficits, alert Skin: normal color, warm/dry Assessment and Plan 1. Inferior STEMI/occluded RCA -- s/p PPCI with JORGE LUIS to proximal to mid RCA 2. Multivessel disease -- s/p PCI with JORGE LUIS to subtotal distal LCx 3. High-degree AVB -- minimal 2:1 AV block on metoprolol 4. Cardiogenic shock -- resolved 5. YESENIA -- post contrast/hypotension - improved 6. Anemia -- suspect dilutional, mild epistaxis Increased work of breathing today with increased congestion on exam after + 2700 yesterday Tolerating beta-tiffanie with only minimal 2:1 AV block -- suspect will continue to improve as further out from [place] Renal function improved. -- Discontinue IV fluids -- Lasix 40mg IV x1 today -- Continue current ARB/beta-tiffanie -- Continue DAPT with ASA/Ticagrelor -- Continue statin -- If respiratory status improved, stable overnight possible OK for discharge tomorrow from cardiac standpoint. Medications: Current Inpatient Medications Medications (Trade) Dose Ordered Sig/Alice Route Start Time Stop Time Status Last Admin Dose Admin Nitroglycerin (Nitrostat Tab) 0.4 mg UD PRN SL 07/13/17 18:30 08/12/17 18:29 Sodium Chloride 1,000 ml @ 100 mls/hr Q10H IV 07/13/17 18:30 08/12/17 18:29 07/16/17 06:20 100 MLS/HR Aspirin (Ecotrin Tab) 81 mg QAM PO 07/14/17 09:00 08/13/17 08:59 07/16/17 08:13 81 MG Atorvastatin Calcium (Lipitor Tab) 80 mg QAM PO 07/14/17 09:00 08/13/17 08:59 07/16/17 08:13 80 MG Metoprolol Tartrate (Lopressor Tab) 25 mg Q12 PO 07/13/17 21:00 08/12/17 20:59 Future hold 07/16/17 09:36 25 MG Acetaminophen (Tylenol Tab) 650 mg Q4H PRN PO 07/13/17 18:30 08/12/17 18:29 07/13/17 23:40 650 MG Losartan Potassium (coZAAR TAB) 25 mg DAILY PO 07/14/17 09:00 08/13/17 08:59 Future hold 07/16/17 09:36 25 MG Multivitamins (Multivitamin Tab) 1 tab DAILY PO 07/14/17 09:00 08/13/17 08:59 07/16/17 08:13 1 TAB Ticagrelor (Brilinta Tab) 90 mg BID PO 07/14/17 07:00 08/13/17 06:59 07/16/17 08:14 90 MG Heparin Sodium (Porcine) (Heparin Sq 5000 Unit/0.5ml) 5,000 unit Q8 SQ 07/14/17 14:00 08/13/17 13:59 07/15/17 13:50 5,000 UNIT Lab Results: 07/16/17 07:30 Red Blood Count 3.11, Mean Corpuscular Volume 94.2, Mean Corpuscular Hemoglobin 31.5, Mean Corpuscular Hemoglobin Concent 33.4, Mean Platelet Volume 10.5, Neutrophils (%) (Auto) 81.9, Lymphocytes (%) (Auto) 9.4, Monocytes (%) (Auto) 8.2, Eosinophils (%) (Auto) 0.4, Basophils (%) (Auto) 0.0, Neutrophils # (Auto) 6.12, Lymphocytes # (Auto) 0.70, Monocytes # (Auto) 0.61, Eosinophils # (Auto) 0.03, Basophils # (Auto) 0.00 07/16/17 07:30 Test 07/16/17 07:30 White Blood Count 7.47 K/uL (4.8-10.8) Red Blood Count 3.11 M/uL (4.2-5.4) Hemoglobin 9.8 g/dL (12.0-16.0) Hematocrit 29.3 % (37-47) Mean Corpuscular Volume 94.2 fL (80-100) Mean Corpuscular Hemoglobin 31.5 pg (25-34) Mean Corpuscular Hemoglobin Concent 33.4 g/dl (32-36) Platelet Count 206 K/uL (130-400) Mean Platelet Volume 10.5 fL (7.4-10.4) Neutrophils (%) (Auto) 81.9 % Lymphocytes (%) (Auto) 9.4 % Monocytes (%) (Auto) 8.2 % Eosinophils (%) (Auto) 0.4 % Basophils (%) (Auto) 0.0 % Neutrophils # (Auto) 6.12 K/uL (1.4-6.5) Lymphocytes # (Auto) 0.70 K/uL (1.2-3.4) Monocytes # (Auto) 0.61 K/uL (0.11-0.59) Eosinophils # (Auto) 0.03 K/uL (0-0.5) Basophils # (Auto) 0.00 K/uL (0-0.2) RDW Standard Deviation 48.8 fL (36.4-46.3) RDW Coefficient of Variation 14.2 % (11.5-14.5) Immature Granulocyte % (Auto) 0.1 % Immature Granulocyte # (Auto) 0.01 K/uL (0.00-0.02) Anion Gap 10.0 mmol/L (3-11) Est Creatinine Clear Calc Drug Dose 63.1 ml/min Estimated GFR () 69.4 Estimated GFR (Non- 59.9 BUN/Creatinine Ratio 26.6 (10-20) Calcium Level 8.0 mg/dl (8.5-10.1) Phosphorus Level 2.5 mg/dl (2.5-4.9)
[2017-07-16] MEDS ORDERED: FUROSEMIDE INJ 40 MG in SYRINGE 0 ML IV ONE (12:15)
[2017-07-16 15:36] VITALS: BP 125/76; PULSE 83; TEMP 36.7; O2SAT 98
--- NOTE | 2017-07-16 18:14 | Progress Note ---
Medicine Progress Note Date & Time of Visit: Jul 16, 2017 at 11:07. Subjective Pt was seen and examined Sitting in chair with no distress Pt said that she walked in the hallway this morning She said that after the walk, she was having SOB Denies any chest pain, palpitation, dizziness Objective Last 8 Hrs Date Time Temp Pulse Resp B/P (MAP) Pulse Ox O2 Delivery O2 Flow Rate FiO2 07/16/17 16:00 Room Air 07/16/17 15:36 36.7 83 18 125/76 (92) 98 Room Air 07/16/17 11:30 Room Air Physical Exam: General- No acute distress Head- atraumatic Eyes- PERRL, EOMI ENT- oropharynx clear Neck- supple, no JVD Lungs- No wheezing Heart- regular rhythm Abdomen- normal bowel sounds, soft Extremities- No calf tenderness Neuro- alert, oriented x 3; PERRL, EOMI; no facial palsy Skin- warm & dry Laboratory Results: Last 24 Hours Test 07/16/17 07:30 White Blood Count 7.47 K/uL Red Blood Count 3.11 M/uL Hemoglobin 9.8 g/dL Hematocrit 29.3 % Mean Corpuscular Volume 94.2 fL Mean Corpuscular Hemoglobin 31.5 pg Mean Corpuscular Hemoglobin Concent 33.4 g/dl Platelet Count 206 K/uL Mean Platelet Volume 10.5 fL Neutrophils (%) (Auto) 81.9 % Lymphocytes (%) (Auto) 9.4 % Monocytes (%) (Auto) 8.2 % Eosinophils (%) (Auto) 0.4 % Basophils (%) (Auto) 0.0 % Neutrophils # (Auto) 6.12 K/uL Lymphocytes # (Auto) 0.70 K/uL Monocytes # (Auto) 0.61 K/uL Eosinophils # (Auto) 0.03 K/uL Basophils # (Auto) 0.00 K/uL RDW Standard Deviation 48.8 fL RDW Coefficient of Variation 14.2 % Immature Granulocyte % (Auto) 0.1 % Immature Granulocyte # (Auto) 0.01 K/uL Sodium Level 137 mmol/L Potassium Level 3.9 mmol/L Chloride Level 107 mmol/L Carbon Dioxide Level 19 mmol/L Anion Gap 10.0 mmol/L Blood Urea Nitrogen 25 mg/dl Creatinine 0.96 mg/dl Est Creatinine Clear Calc Drug Dose 63.1 ml/min Estimated GFR () 69.4 Estimated GFR (Non- 59.9 BUN/Creatinine Ratio 26.6 Random Glucose 88 mg/dl Calcium Level 8.0 mg/dl Phosphorus Level 2.5 mg/dl Assessment & Plan INFERIOR [facility] ELEVATION [place] S/P cardiac cath done yesterday by Dr. Gutierrez PCI of RCA and circumflex with drug-eluting stents performed. Continue aspirin, ticagrelor and atorvastatin. Resumed metoprolol and losartan Denies any chest pain Continue monitor in telemetry Echo showed * There is borderline concentric left ventricular hypertrophy. * Left ventricular systolic function is normal. * There are regional wall motion abnormalities as specified. * The right ventricle is mildly dilated. * The right ventricular systolic function is moderate to severely reduced. * Basal portions of the right ventricle appear akinetic * The left atrium is mildly dilated. * There is moderate tricuspid regurgitation. * Right ventricular systolic pressure is normal. * The inferior vena cava is mildly dilated. CARDIOGENIC SHOCK Developed hypotension that was required Dobutamine Dopamine was D/C D/C IVF HYPERTENSION BP controlled Losartan and metoprolol resumed Monitor BP. DYSLIPIDEMIA LDL 95 Continue statin YESENIA ON CKD STAGE 3 Creatine on admission was 1.4 Creatine improved to 0.9 today Had contrast yesterday for the emergent cardiac cath Received IVF Monitor BMP Resolved HEADACHE Elevated ESR possible due to recent [place] No vision disturbance Doubt temporal arteritis No prednisone due to current [place] Headache resolved since yesterday Stable VTE PROPHYLAXIS On heparin subq DISPOSITION Continue monitor telemetry Consultants: Senior Safety Support Manager Cardio Current Inpatient Medications: Current Inpatient Medications Medications (Trade) Dose Ordered Sig/Alice Route Start Time Stop Time Status Last Admin Dose Admin Nitroglycerin (Nitrostat Tab) 0.4 mg UD PRN SL 07/13/17 18:30 08/12/17 18:29 Aspirin (Ecotrin Tab) 81 mg QAM PO 07/14/17 09:00 08/13/17 08:59 07/16/17 08:13 81 MG Atorvastatin Calcium (Lipitor Tab) 80 mg QAM PO 07/14/17 09:00 08/13/17 08:59 07/16/17 08:13 80 MG Metoprolol Tartrate (Lopressor Tab) 25 mg Q12 PO 07/13/17 21:00 08/12/17 20:59 Future hold 07/16/17 09:36 25 MG Acetaminophen (Tylenol Tab) 650 mg Q4H PRN PO 07/13/17 18:30 08/12/17 18:29 07/13/17 23:40 650 MG Losartan Potassium (coZAAR TAB) 25 mg DAILY PO 07/14/17 09:00 08/13/17 08:59 Future hold 07/16/17 09:36 25 MG Multivitamins (Multivitamin Tab) 1 tab DAILY PO 07/14/17 09:00 08/13/17 08:59 07/16/17 08:13 1 TAB Ticagrelor (Brilinta Tab) 90 mg BID PO 07/14/17 07:00 08/13/17 06:59 07/16/17 08:14 90 MG Heparin Sodium (Porcine) (Heparin Sq 5000 Unit/0.5ml) 5,000 unit Q12 SQ 07/16/17 21:00 08/13/17 13:59
[2017-07-16 19:01] VITALS: BP 137/88; PULSE 85; TEMP 36.7; O2SAT 98
--- NOTE | 2017-07-16 21:03 | Progress Note ---
Post ICU Progress Note Date & Time Jul 16, 2017 at 20:53 Vital Signs Vital Signs Past 12 Hours Date Time Temp Pulse Resp B/P (MAP) Pulse Ox O2 Delivery O2 Flow Rate FiO2 07/16/17 19:01 36.7 85 18 137/88 (104) 98 Room Air 07/16/17 16:00 Room Air 07/16/17 15:36 36.7 83 18 125/76 (92) 98 Room Air 07/16/17 11:30 Room Air Notes Mental Status: alert / awake, participated in evaluation Nausea / Vomiting: adequately controlled Pain: adequately controlled Airway Patency, RR, SpO2: stable & adequate BP & HR: stable & adequate Camille Daniels is a 72yo female who presented to [facility] as a heart alert that was taken to the cardiac shift lab technician by Dr. Gutierrez and received 1 JORGE LUIS to the proximal RCA for 100% occlusion and 1 JORGE LUIS Stent to the Distal Circumflex. Cath also found 30% in prox-mid LAD and 50 -60% within the distal LAD. Pts ECHO the following day demonstrated borderline concentric left ventricular hypertrophy, left ventricular systolic function is normal, regional wall motion abnormalities as specified, right ventricle is mildly dilated and systolic function is moderate to severely reduced. Basal portions of the right ventricle appear akinetic and the left atrium is mildly dilated, inferior vena cava is also mildly dilated. There is moderate tricuspid regurgitation. Pt did undergo a right triple lumen central venous catheter insertion due to lack of access and possible need for central drug administration as her SBP was in the mid to upper 90s on 07/14/17. She did indeed require dopamine infusion to assist hypotension. The line was left in place for the same reason when she transferred from the floor on 07/15/17. She did not undergo invasive monitoring or intubation while on the unit. Pt experienced increase work of breathing today while ambulating in the hallway. She was 2700mL positive today and 9L positive for the admission. Cardiology is planning for discharge tomorrow if respiratory status improves. Pt states her SOB has improved. She has been up and out of bed to urinate many times and the exertional dyspnea has improved as well. Pt physical exam is unchanged from prior. Lungs are clears throughout with minimal fine crackles, but without rhonchi or wheezing. She is in NSR trying to sleep in bed. Pt is hoping to go home tomorrow. Consider outpatient follow up in 1 to 2 weeks after discharge with: Dr. Mason Repeat imaging needed: CXR in AM Follow up cultures: NA Reviewed progress notes, labs, and inpatient medication list Continue current management Additional recommendations: Lasix per Cardiology recommendation at this time; pt encouraged to ambulate as breathing allows to help circulate fluids CCM will sign off at this time. Thank you for including us in the care of this patient; please feel free to reconsult as needed. Consults & Procedures Consultants: Cardiology - Dr. Gutiererz Procedures: Cardiac catheterization 07/13/2017 - Dr. Gutierrez [facility] Central Line 07/14/2017 - Kevin Malagon PA-C (still in on examination; Per Mr. Malagon's Documentation, IV Team to resume responsibility if removal prior to d/c)
[2017-07-16 23:16] VITALS: BP 116/75; PULSE 79; TEMP 36.7; O2SAT 95
[2017-07-17 03:19] VITALS: BP 129/79; PULSE 79; TEMP 36.7; O2SAT 94
[2017-07-17 07:49] VITALS: BP 134/83; PULSE 78; TEMP 36.3; O2SAT 95
[2017-07-17] MEDS: HEPARIN SOD 5000 UNIT/0.5 ML CARP SQ SCH ×2 (08:28→19:26)
[2017-07-17] MEDS: ATORVASTATIN 40 MG TAB PO SCH (08:29)
[2017-07-17] MEDS: TICAGRELOR 90 MG TAB PO SCH ×2 (08:29→19:26)
[2017-07-17] MEDS: ASPIRIN 81 MG ECTAB PO SCH (08:29)
[2017-07-17] MEDS: MULTIVITAMIN TAB PO SCH (08:29)
[2017-07-17] MEDS: LOSARTAN POTASSIUM 25 MG TAB PO SCH (08:29)
[2017-07-17] MEDS: METOPROLOL TARTRATE 25 MG TAB PO SCH ×2 (08:29→19:26)
--- NOTE | 2017-07-17 10:54 | DIAGNOSTIC IMAGING REPORT ---
CHEST ONE VIEW PORTABLE CLINICAL HISTORY: Shortness of breath COMPARISON STUDY: 07/14/2017 FINDINGS: The heart is enlarged. There is a right-sided internal jugular central venous catheter unchanged in position. There is blunting of the left lateral costophrenic angle. There are minor left basilar atelectatic changes.[ IMPRESSION: Suspected small left pleural effusion. Minor left basilar atelectasis. Stable cardiomegaly. Electronically signed by: Kevon Weaver M.D. 07/17/2017 10:53 AM Dictated Date/Time: 07/17/2017 10:52 AM
[2017-07-17 12:26] VITALS: BP 138/74; PULSE 74; TEMP 36.5; O2SAT 98
--- NOTE | 2017-07-17 12:49 | Progress Note ---
Medicine Progress Note Date & Time of Visit: Jul 17, 2017 at 12:42. Subjective Pt was seen and examined Pt was coming out from the bathroom when i entered her room Pt said that she continue to have SOB She said that before coming to the hospital she did not have SOB with minimal exertion Denies any chest pain, palpitation and fever Objective Last 8 Hrs Date Time Temp Pulse Resp B/P (MAP) Pulse Ox O2 Delivery O2 Flow Rate FiO2 07/17/17 12:26 36.5 74 20 138/74 (95) 98 Room Air 07/17/17 12:00 Room Air 07/17/17 08:00 Room Air 07/17/17 07:49 36.3 78 18 134/83 (100) 95 Room Air Physical Exam: General- No acute distress Head- atraumatic Eyes- PERRL, EOMI ENT- oropharynx clear Neck- supple, no JVD Lungs- No wheezing Heart- regular rhythm Abdomen- normal bowel sounds, soft Extremities- No calf tenderness Neuro- alert, oriented x 3; PERRL, EOMI; no facial palsy Skin- warm & dry Assessment & Plan INFERIOR ST ELEVATION [place] S/P cardiac cath done yesterday by Dr. Gutierrez PCI of RCA and circumflex with drug-eluting stents performed. Continue aspirin, ticagrelor and atorvastatin. Resumed metoprolol and losartan Denies any chest pain Continue monitor in telemetry Echo showed * There is borderline concentric left ventricular hypertrophy. * Left ventricular systolic function is normal. * There are regional wall motion abnormalities as specified. * The right ventricle is mildly dilated. * The right ventricular systolic function is moderate to severely reduced. * Basal portions of the right ventricle appear akinetic * The left atrium is mildly dilated. * There is moderate tricuspid regurgitation. * Right ventricular systolic pressure is normal. * The inferior vena cava is mildly dilated. DYSPNEA Continue to have SOB with exertion CXR done this morning showed Suspected small left pleural effusion Will give additional lasix IV today Continue monitor I/O has a positive 9L balance CARDIOGENIC SHOCK Developed hypotension that was required Dobutamine Dopamine was D/C D/C IVF HYPERTENSION BP controlled Losartan and metoprolol resumed Monitor BP. DYSLIPIDEMIA LDL 95 Continue statin YESENIA ON CKD STAGE 3 Creatine on admission was 1.4 Creatine improved to 0.9 yesterday Had contrast yesterday for the emergent cardiac cath Received IVF Monitor BMP Resolved HEADACHE Elevated ESR possible due to recent [place] No vision disturbance Doubt temporal arteritis No prednisone due to current [place] Headache resolved since yesterday Stable VTE PROPHYLAXIS On heparin subq DISPOSITION Continue monitor telemetry Consultants: Law Instructor Cardio Current Inpatient Medications: Current Inpatient Medications Medications (Trade) Dose Ordered Sig/Alice Route Start Time Stop Time Status Last Admin Dose Admin Nitroglycerin (Nitrostat Tab) 0.4 mg UD PRN SL 07/13/17 18:30 08/12/17 18:29 Aspirin (Ecotrin Tab) 81 mg QAM PO 07/14/17 09:00 08/13/17 08:59 07/17/17 08:29 81 MG Atorvastatin Calcium (Lipitor Tab) 80 mg QAM PO 07/14/17 09:00 08/13/17 08:59 07/17/17 08:29 80 MG Metoprolol Tartrate (Lopressor Tab) 25 mg Q12 PO 07/13/17 21:00 08/12/17 20:59 Future hold 07/17/17 08:29 25 MG Acetaminophen (Tylenol Tab) 650 mg Q4H PRN PO 07/13/17 18:30 08/12/17 18:29 07/13/17 23:40 650 MG Losartan Potassium (coZAAR TAB) 25 mg DAILY PO 07/14/17 09:00 08/13/17 08:59 Future hold 07/17/17 08:29 25 MG Multivitamins (Multivitamin Tab) 1 tab DAILY PO 07/14/17 09:00 08/13/17 08:59 07/17/17 08:29 1 TAB Ticagrelor (Brilinta Tab) 90 mg BID PO 07/14/17 07:00 08/13/17 06:59 07/17/17 08:29 90 MG Heparin Sodium (Porcine) (Heparin Sq 5000 Unit/0.5ml) 5,000 unit Q12 SQ 07/16/17 21:00 08/13/17 13:59
[2017-07-17] MEDS ORDERED: FUROSEMIDE INJ 40 MG in SYRINGE 0 ML IV ONE ×2 (13:00→19:00)
--- NOTE | 2017-07-17 13:15 | Cardiology Follow-Up ---
Subjective Subjective Date of Service: Jul 17, 2017. Pt evaluation today including: conversation w/ patient, physical exam, chart review, lab review, review of studies, conversation w/ surgical product sales consultant, review of inpatient medication list Additional Details: Still dyspneic with walking. Denies any chest pain. Tele reviewed -- no events Problem List Medical Problems: (1) GA (myocardial infarction) Status: Acute (2) Vertigo Status: Acute Review of Systems Constitutional: No fever ENT: No hearing loss Respiratory: No cough Cardiac: + see HPI Abdomen: No pain Heme: No abnormal bleeding/bruising Endo: No fatigue Skin: No rash Objective Vital Signs Last Vital Signs Documentation Date Time Temp Pulse Resp B/P (MAP) Pulse Ox O2 Delivery O2 Flow Rate FiO2 07/17/17 12:26 36.5 74 20 138/74 (95) 98 Room Air 07/15/17 04:00 3.0 Physical Exam: General Appearance: no apparent distress Neck: supple, + JVD (~9) Respiratory/Chest: normal breath sounds, + decreased breath sounds (decreased at bases bilat) Cardiovascular: regular rate, rhythm, no murmur, + pertinent finding (trace edema bilaterally) Abdomen: normal bowel sounds, non tender, soft Extremities: + pertinent finding (right groin access site - no hematoma/ ecchymosis) Neurologic/Psychiatric: no motor/sensory deficits, alert Skin: normal color, warm/dry Assessment and Plan 1. Inferior STEMI/occluded RCA -- s/p PPCI with JORGE LUIS to proximal to mid RCA 2. Multivessel disease -- s/p PCI with JORGE LUIS to subtotal distal LCx 3. High-degree AVB -- minimal 2:1 AV block on metoprolol 4. Cardiogenic shock -- resolved 5. YESENIA -- post contrast/hypotension - improved 6. Anemia -- suspect dilutional, mild epistaxis Still dyspneic today with exertion. Net positive yesterday. Congestion on chest xray Recommend continued diuresis today. -- Lasix 40mg IV now; additional 40 IV lasix this afternoon. -- Repeat BMP/CBC in AM -- Continue current ARB/beta-tiffanie -- Continue DAPT with ASA/Ticagrelor -- Continue statin -- If respiratory status improved, stable overnight possible OK for discharge tomorrow from cardiac standpoint. Medications: Current Inpatient Medications Medications (Trade) Dose Ordered Sig/Alice Route Start Time Stop Time Status Last Admin Dose Admin Nitroglycerin (Nitrostat Tab) 0.4 mg UD PRN SL 07/13/17 18:30 08/12/17 18:29 Aspirin (Ecotrin Tab) 81 mg QAM PO 07/14/17 09:00 08/13/17 08:59 07/17/17 08:29 81 MG Atorvastatin Calcium (Lipitor Tab) 80 mg QAM PO 07/14/17 09:00 08/13/17 08:59 07/17/17 08:29 80 MG Metoprolol Tartrate (Lopressor Tab) 25 mg Q12 PO 07/13/17 21:00 08/12/17 20:59 Future hold 07/17/17 08:29 25 MG Acetaminophen (Tylenol Tab) 650 mg Q4H PRN PO 07/13/17 18:30 08/12/17 18:29 07/13/17 23:40 650 MG Losartan Potassium (coZAAR TAB) 25 mg DAILY PO 07/14/17 09:00 08/13/17 08:59 Future hold 07/17/17 08:29 25 MG Multivitamins (Multivitamin Tab) 1 tab DAILY PO 07/14/17 09:00 08/13/17 08:59 07/17/17 08:29 1 TAB Ticagrelor (Brilinta Tab) 90 mg BID PO 07/14/17 07:00 08/13/17 06:59 07/17/17 08:29 90 MG Heparin Sodium (Porcine) (Heparin Sq 5000 Unit/0.5ml) 5,000 unit Q12 SQ 07/16/17 21:00 08/13/17 13:59 Furosemide 40 mg/ Syringe 4 ml @ 4 mls/min ONE ONCE IV 07/17/17 13:00 07/17/17 13:01
[2017-07-17 15:24] VITALS: BP 124/77; PULSE 79; TEMP 36.5; O2SAT 97
[2017-07-17 19:24] VITALS: BP 151/83; PULSE 83; TEMP 36.8; O2SAT 97
[2017-07-17 23:40] VITALS: BP 116/77; PULSE 83; TEMP 36.8; O2SAT 93
[2017-07-18 04:00] VITALS: BP 105/70; PULSE 80; TEMP 36.7; O2SAT 94
[2017-07-18 04:52] LABS: HEMATOCRIT 30.8 % (37-47); HEMOGLOBIN 10.6 g/dL (12.0-16.0); MEAN CELL VOLUME 93.3 fL (80-100); MEAN CORPUSCULAR HEMOGLOBIN 32.1 pg (25-34); MEAN CORPUSCULAR HGB CONC 34.4 g/dl (32-36); MEAN PLATELET VOLUME 9.9 fL (7.4-10.4); PLATELET COUNT 280 K/uL (130-400); RED CELL DISTRIBUTION WIDTH CV 13.8 % (11.5-14.5); RED CELL DISTRIBUTION WIDTH SD 47.3 fL (36.4-46.3); WHITE BLOOD COUNT 7.24 K/uL (4.8-10.8)
[2017-07-18 05:10] LABS: CALCIUM 8.6 mg/dl (8.5-10.1); CREATININE 1.12 mg/dl (0.60-1.20); POTASSIUM 3.4 mmol/L (3.5-5.1)
[2017-07-18 07:28] VITALS: BP 106/54; PULSE 78; TEMP 36.6; O2SAT 98
[2017-07-18] MEDS ORDERED: POTASSIUM CHLORIDE 20 MEQ TABCR PO ONE (08:00)
[2017-07-18] MEDS: METOPROLOL TARTRATE 25 MG TAB PO SCH (08:55)
[2017-07-18] MEDS: TICAGRELOR 90 MG TAB PO SCH (08:55)
[2017-07-18] MEDS: MULTIVITAMIN TAB PO SCH (08:56)
[2017-07-18] MEDS: ATORVASTATIN 40 MG TAB PO SCH (08:56)
[2017-07-18] MEDS: ASPIRIN 81 MG ECTAB PO SCH (08:56)
[2017-07-18] MEDS: LOSARTAN POTASSIUM 25 MG TAB PO SCH (08:57)
[2017-07-18] MEDS: HEPARIN SOD 5000 UNIT/0.5 ML CARP SQ SCH (08:57)
[2017-07-18 11:24] VITALS: BP 143/78; PULSE 78; TEMP 36.7; O2SAT 97
[2017-07-18] MEDS ORDERED: FUROSEMIDE 40 MG TAB PO ONE (12:34)
--- NOTE | 2017-07-18 13:08 | Progress Note ---
Medicine Progress Note Date & Time of Visit: Jul 18, 2017 at 12:31. Subjective Pt was seen and examined Sitting in bed with no distress Pt said that she feels fine She said that her breathing is much better She denies any SOB, palpitation and dizziness Objective Last 8 Hrs Date Time Temp Pulse Resp B/P (MAP) Pulse Ox O2 Delivery O2 Flow Rate FiO2 07/18/17 11:24 36.7 78 18 143/78 (99) 97 Room Air 07/18/17 08:00 Room Air 07/18/17 07:28 36.6 78 19 106/54 (71) 98 Room Air Physical Exam: General- No acute distress Head- atraumatic Eyes- PERRL, EOMI ENT- oropharynx clear Neck- supple, no JVD Lungs- No wheezing Heart- regular rhythm Abdomen- normal bowel sounds, soft Extremities- No calf tenderness Neuro- alert, oriented x 3; PERRL, EOMI; no facial palsy Skin- warm & dry Laboratory Results: Last 24 Hours Test 07/18/17 04:42 White Blood Count 7.24 K/uL Red Blood Count 3.30 M/uL Hemoglobin 10.6 g/dL Hematocrit 30.8 % Mean Corpuscular Volume 93.3 fL Mean Corpuscular Hemoglobin 32.1 pg Mean Corpuscular Hemoglobin Concent 34.4 g/dl RDW Standard Deviation 47.3 fL RDW Coefficient of Variation 13.8 % Platelet Count 280 K/uL Mean Platelet Volume 9.9 fL Sodium Level 138 mmol/L Potassium Level 3.4 mmol/L Chloride Level 104 mmol/L Carbon Dioxide Level 23 mmol/L Anion Gap 11.0 mmol/L Blood Urea Nitrogen 28 mg/dl Creatinine 1.12 mg/dl Est Creatinine Clear Calc Drug Dose 53.5 ml/min Estimated GFR () 57.6 Estimated GFR (Non- 49.7 BUN/Creatinine Ratio 24.8 Random Glucose 90 mg/dl Calcium Level 8.6 mg/dl Assessment & Plan INFERIOR ST ELEVATION IN S/P cardiac cath done yesterday by Dr. Gutierrez PCI of RCA and circumflex with drug-eluting stents performed. Continue aspirin, ticagrelor and atorvastatin. Resumed metoprolol and losartan Denies any chest pain No arrhythmia on tele monitor Clinically improved significantly Echo showed * There is borderline concentric left ventricular hypertrophy. * Left ventricular systolic function is normal. * There are regional wall motion abnormalities as specified. * The right ventricle is mildly dilated. * The right ventricular systolic function is moderate to severely reduced. * Basal portions of the right ventricle appear akinetic * The left atrium is mildly dilated. * There is moderate tricuspid regurgitation. * Right ventricular systolic pressure is normal. * The inferior vena cava is mildly dilated. DYSPNEA Continue to have SOB with exertion CXR done this morning showed Suspected small left pleural effusion has been diuretic very well Will discharge on lasix PO daily for now Case discussed with Cardiology Dr. Gutierrez that recommended to continue Lasix 40mg daily Dr. Gutierrez will evaluate pt in next admission to determine if she will require additional lasix has a positive 6L balance Check BMP in 1 week CARDIOGENIC SHOCK Developed hypotension that was required Dobutamine Dopamine was D/C D/C IVF HYPERTENSION BP controlled Losartan and metoprolol resumed Monitor BP. DYSLIPIDEMIA LDL 95 Continue statin YESENIA ON CKD STAGE 3 Creatine on admission was 1.4 Creatine stable Had contrast yesterday for the emergent cardiac cath Received IVF Check BMP within 1 week Resolved HEADACHE Elevated ESR possible due to recent [place] No vision disturbance Doubt temporal arteritis No prednisone due to current [place] Headache resolved since yesterday Stable VTE PROPHYLAXIS On heparin subq DISPOSITION Discharge home today Consultants: Contact Center Director Cardio Current Inpatient Medications: Current Inpatient Medications Medications (Trade) Dose Ordered Sig/Alice Route Start Time Stop Time Status Last Admin Dose Admin Nitroglycerin (Nitrostat Tab) 0.4 mg UD PRN SL 07/13/17 18:30 08/12/17 18:29 Aspirin (Ecotrin Tab) 81 mg QAM PO 07/14/17 09:00 08/13/17 08:59 07/18/17 08:56 81 MG Atorvastatin Calcium (Lipitor Tab) 80 mg QAM PO 07/14/17 09:00 08/13/17 08:59 07/18/17 08:56 80 MG Metoprolol Tartrate (Lopressor Tab) 25 mg Q12 PO 07/13/17 21:00 08/12/17 20:59 Future hold 07/18/17 08:55 25 MG Acetaminophen (Tylenol Tab) 650 mg Q4H PRN PO 07/13/17 18:30 08/12/17 18:29 07/13/17 23:40 650 MG Losartan Potassium (coZAAR TAB) 25 mg DAILY PO 07/14/17 09:00 08/13/17 08:59 Future hold 07/18/17 08:57 25 MG Multivitamins (Multivitamin Tab) 1 tab DAILY PO 07/14/17 09:00 08/13/17 08:59 07/18/17 08:56 1 TAB Ticagrelor (Brilinta Tab) 90 mg BID PO 07/14/17 07:00 08/13/17 06:59 07/18/17 08:55 90 MG Heparin Sodium (Porcine) (Heparin Sq 5000 Unit/0.5ml) 5,000 unit Q12 SQ 07/16/17 21:00 08/13/17 13:59 Heparin Sodium (Porcine) (Heparin 10 Unit/ ml 5 ml Flush) 5 ml PRN PRN FLUSH 07/18/17 01:15 08/17/17 01:14
[2017-07-18] MEDS ORDERED: LPT40 PO (13:14)
[2017-07-18] MEDS ORDERED: ASPEC81 PO (13:14)
[2017-07-18] MEDS ORDERED: LPR25 PO (13:14)
[2017-07-18] MEDS ORDERED: LSX40 PO (13:14)
[2017-07-18] MEDS ORDERED: BRL90 PO (13:14)
--- NOTE | 2017-07-18 13:35 | Discharge Instructions ---
Discharge Instructions Date of Service Jul 18, 2017. Admission Reason for Admission: [place] Discharge Discharge Diagnosis / Problem: INFERIOR ST ELEVATION MYOCARDIAC INFECTION/ CARDIOGENIC SHOCK/YESENIA ON CKD 3 Discharge Goals Goal(s): Decrease discomfort, Improve function, Improve disease control Activity Recommendations Activity Limitations: resume your previous activity ( TOLERATED ) . Instructions / Follow-Up Instructions / Follow-Up Follow up with your primary care provider Dr. Mason within 1 week Follow up with Cardiology Dr. Gutierrez within 1 week Continue Lasix 40mg daily for now (Cardiology will evaluate you in the next visit about lasix) (Call [facility] Cardiology group if you don't hear from dr. Gutierrez's office about the appointment) Check BMP within 1 week to monitor electrolytes and renal function Fall precaution Continue Brilinta and aspirin non stop for now Will give a home dose pack for brillinta for tonight and tomorrow morning. Notify your physician if you develop any bleeding Current Hospital Diet Patient's current hospital diet: AHA Diet (Heart Healthy), Gluten Free Diet, Low Lactose Diet Discharge Diet Recommended Diet: AHA Diet (Heart Healthy) Pending Studies Studies pending at discharge: no Laboratory Results Hemoglobin A1c Test 07/14/17 06:42 Range/Units Estimated Average Glucose 108 mg/dl Hemoglobin A1c 5.4 4.5-5.6 % Lipid Panel Test 07/14/17 06:42 Range/Units Triglycerides Level 151 H 0-150 mg/dl Cholesterol Level 167 0-200 mg/dl HDL Cholesterol 42 mg/dl Cholesterol/HDL Ratio 4.0 LDL Cholesterol, Calculated 95 mg/dl Medical Emergencies . Who to Call and When: Medical Emergencies: If at any time you feel your situation is an emergency, please call 911 immediately. . Non-Emergent Contact Non-Emergency issues call your: Primary Care Provider, Inspection Clerk Call Non-Emergent contact if: you have any medication questions . . "Provider Documentation" section prepared by Michael Navarro. . VTE Core Measure Inpt VTE Proph given/why not?: Enoxaparin (Lovenox)SQ, Other Anticoagulation ( IV heparin)
[2017-07-18] MEDS ORDERED: TICAGRELOR 90 MG TAB PO ONE (13:45)
[2017-07-18] MEDS ORDERED: METOPROLOL TARTRATE 25 MG TAB PO ONE (13:45)
[2017-07-18] MEDS ORDERED: ASPIRIN 81 MG ECTAB PO ONE (13:45)
[2017-07-18 14:04] VITALS: BP 143/78; PULSE 78; TEMP 36.7; O2SAT 97
[2017-07-18] MEDS ORDERED: ASPIRIN 81 MG ECTAB PO SCH (14:15)
[2017-07-18] MEDS ORDERED: TICAGRELOR 90 MG TAB PO SCH (14:15)
[2017-07-18] MEDS ORDERED: METOPROLOL TARTRATE 25 MG TAB PO SCH (14:15)
[2017-07-19] MEDS ORDERED: FUROSEMIDE 40 MG TAB PO SCH (09:00)
--- NOTE | 2017-07-19 11:14 | Discharge Summary ---
Discharge Summary Date of Service Jul 19, 2017. Discharge Summary Admission Date: Jul 13, 2017 at 18:35 Discharge Date: Jul 18, 2017 Discharge Disposition: Home Principal Diagnosis: INFERIOR ST ELEVATION MYOCARDIAC INFECTION Secondary Diagnoses/Problems: CARDIOGENIC SHOCK YESENIA ON CKD 3 DYSPNEA HYPERTENSION HEADACHE Procedures: S/P cardiac cath done yesterday by Dr. Gutierrez PCI of RCA and circumflex with drug-eluting stents performed. Consultations: Sprayer Leather Cardio Medication Reconciliation New Medications: Aspirin (Aspirin EC Low Dose) 81 Mg Ectab 81 MG PO QAM for 30 Days Atorvastatin (Atorvastatin Calcium) 40 Mg Tab 80 MG PO QAM for 30 Days, #60 TAB Furosemide (Furosemide) 40 Mg Tab 40 MG PO QAM for 30 Days, #30 TAB Metoprolol Tartrate (Lopressor) 25 Mg Tab 25 MG PO Q12 for 30 Days, #60 TAB Ticagrelor (Brilinta) 90 Mg Tab 90 MG PO BID for 30 Days, #60 TAB Continued Medications: Cholecalciferol (Vitamin D3) Unknown Strength Tab 1 TAB PO DAILY for 90 Days, TAB 3 Refills Losartan Potassium (Cozaar) 25 Mg Tab 25 MG PO DAILY, TAB Multivitamin (Multivitamin) Tab 1 TAB PO DAILY, TAB Potassium (Potassium) 99 Mg Tab Unknown Dose PO DAILY Discontinued Medications: Aspirin (Aspirin Ec) 325 Mg Tab 325 MG PO DAILY Admission Information HPI (per Admitting provider): 72 YO female followed by Dr. Tasneem Kaiser for Internal Medicine. History of hypertension, dyslipidemia, and other problems noted below. Experiencing a severe bitemporal headache for the past 3 days. Developed chest pain this morning around 11:00 while lying in bed. Pain described as midsternal pain, not pleuritic, nonradiating. Symptoms associated with SOB. No associated diaphoresis, nausea, vomiting. Tried nonprescription analgesic without relief. Presented to ED ~ 15:50. EKG demonstrated inferior ST elevation. Heart alert called. Taken to manager lab where she was found to have stenoses of RCA and circumflex. Drug-eluting stents placed in RCA and circumflex. Admitted to ICU after PCI. Mild residual chest pain at time of my assessment. . Physical Exam (per Admitting): General Appearance: WD/WN, no apparent distress Head: normocephalic, atraumatic Eyes: normal inspection, PERRL, EOMI, sclerae normal, + pertinent finding ( conjunctivae clear) ENT: normal ENT inspection, hearing grossly normal, pharynx normal Neck: supple, no adenopathy, thyroid normal, no JVD, trachea midline Respiratory/Chest: lungs clear, no respiratory distress, no accessory muscle use Cardiovascular: + pertinent finding (slightly irregular, I/ systolic murmur at base, no gallop appreciated) Abdomen/GI: normal bowel sounds, non tender, soft, no organomegaly Extremities/Musculoskelatal: normal inspection, no calf tenderness, normal capillary refill Neurologic/Psych: drug safety physician II-XII nml as tested (PERRL, EOMI, no facial palsy, no dysarthria), no motor/sensory deficits (grossly intact), alert, normal mood/ affect, oriented x 3 Skin: normal color, warm/dry Lymphatic: no adenopathy (cervical) Hospital Course INFERIOR ST ELEVATION [place] S/P cardiac cath done yesterday by Dr. Gutierrez PCI of RCA and circumflex with drug-eluting stents performed. Continue aspirin, ticagrelor and atorvastatin. Resumed metoprolol and losartan Denies any chest pain No arrhythmia on tele monitor Clinically improved significantly Echo showed * There is borderline concentric left ventricular hypertrophy. * Left ventricular systolic function is normal. * There are regional wall motion abnormalities as specified. * The right ventricle is mildly dilated. * The right ventricular systolic function is moderate to severely reduced. * Basal portions of the right ventricle appear akinetic * The left atrium is mildly dilated. * There is moderate tricuspid regurgitation. * Right ventricular systolic pressure is normal. * The inferior vena cava is mildly dilated. DYSPNEA Continue to have SOB with exertion CXR done this morning showed Suspected small left pleural effusion has been diuretic very well Will discharge on lasix PO daily for now Case discussed with Cardiology Dr. Gutierrez that recommended to continue Lasix 40mg daily Dr. Gutierrez will evaluate pt in next admission to determine if she will require additional lasix has a positive 6L balance Check BMP in 1 week CARDIOGENIC SHOCK Developed hypotension that was required Dobutamine Dopamine was D/C D/C IVF HYPERTENSION BP controlled Losartan and metoprolol resumed Monitor BP. DYSLIPIDEMIA LDL 95 Continue statin YESENIA ON CKD STAGE 3 Creatine on admission was 1.4 Creatine stable Had contrast yesterday for the emergent cardiac cath Received IVF Check BMP within 1 week Resolved HEADACHE Elevated ESR possible due to recent [place] No vision disturbance Doubt temporal arteritis No prednisone due to current [place] Headache resolved since yesterday Stable VTE PROPHYLAXIS On heparin subq DISPOSITION Discharge home today Total time spent on discharge = 35 minutes This includes examination of the patient, discharge planning, medication reconciliation, and communication with other providers. Discharge Instructions Discharge Instructions Date of Service Jul 18, 2017. Admission Reason for Admission: [place] Discharge Discharge Diagnosis / Problem: INFERIOR ST ELEVATION MYOCARDIAC INFECTION/ CARDIOGENIC SHOCK/YESENIA ON CKD 3 Discharge Goals Goal(s): Decrease discomfort, Improve function, Improve disease control Activity Recommendations Activity Limitations: resume your previous activity ( TOLERATED ) . Instructions / Follow-Up Instructions / Follow-Up Follow up with your primary care provider Dr. Mason within 1 week Follow up with Cardiology Dr. Gutierrez within 1 week Continue Lasix 40mg daily for now (Cardiology will evaluate you in the next visit about lasix) (Call [facility] Cardiology group if you don't hear from dr. Gutierrez's office about the appointment) Check BMP within 1 week to monitor electrolytes and renal function Fall precaution Continue Brilinta and aspirin non stop for now Will give a home dose pack for brillinta for tonight and tomorrow morning. Notify your physician if you develop any bleeding Current Hospital Diet Patient's current hospital diet: AHA Diet (Heart Healthy), Gluten Free Diet, Low Lactose Diet Discharge Diet Recommended Diet: AHA Diet (Heart Healthy) Pending Studies Studies pending at discharge: no Laboratory Results Hemoglobin A1c Test 07/14/17 06:42 Range/Units Estimated Average Glucose 108 mg/dl Hemoglobin A1c 5.4 4.5-5.6 % Lipid Panel Test 07/14/17 06:42 Range/Units Triglycerides Level 151 H 0-150 mg/dl Cholesterol Level 167 0-200 mg/dl HDL Cholesterol 42 mg/dl Cholesterol/HDL Ratio 4.0 LDL Cholesterol, Calculated 95 mg/dl Medical Emergencies . Who to Call and When: Medical Emergencies: If at any time you feel your situation is an emergency, please call 911 immediately. . Non-Emergent Contact Non-Emergency issues call your: Primary Care Provider, Grief Counselor Call Non-Emergent contact if: you have any medication questions . . "Provider Documentation" section prepared by Michael Navarro. . VTE Core Measure Inpt VTE Proph given/why not?: Enoxaparin (Lovenox)SQ, Other Anticoagulation ( IV heparin) Additional Copies To Jadon Mason D.O. Jones, Christopher R., MD
== END 2017-07-18 15:00 | disposition home or self-care (01) | DRG 246 ==
LOC: C.EDA 15:56 → ENRESERV 16:10 → C.MSICU 18:35 → ENRESERV 07-15 19:54 → C.2T 07-15 21:02
PROVIDERS: ADMIT Physician Assistant Medical; ATTEND Internal Medicine
PROC: B2111ZZ Fluoroscopy of Multiple Coronary Arteries using Low Osmolar Contrast (ICD-10-PCS; principal; 2017-07-13 15:58)
PROC: 4A023N7 Measurement of Cardiac Sampling and Pressure, Left Heart, Percutaneous Approach (ICD-10-PCS; principal; 2017-07-13 15:58)
PROC: 027135Z Dilation of Coronary Artery, Two Arteries with Two Drug-eluting Intraluminal Devices, Percutaneous Approach (ICD-10-PCS; principal; 2017-07-13 15:58)
PROC: 02HV33Z Insertion of Infusion Device into Superior Vena Cava, Percutaneous Approach (ICD-10-PCS; 2017-07-14)
DX: I21.19 ST elevation (STEMI) myocardial infarction involving other coronary artery of inferior wall (principal); R57.0 Cardiogenic shock; J90 Pleural effusion, not elsewhere classified; N17.9 Acute kidney failure, unspecified; I25.10 Atherosclerotic heart disease of native coronary artery without angina pectoris; I44.1 Atrioventricular block, second degree; R70.0 Elevated erythrocyte sedimentation rate; D64.89 Other specified anemias; R04.0 Epistaxis; R51 Headache; R11.2 Nausea with vomiting, unspecified; I12.9 Hypertensive chronic kidney disease with stage 1 through stage 4 chronic kidney disease, or unspecified chronic kidney disease; E78.5 Hyperlipidemia, unspecified; N18.3 Chronic kidney disease, stage 3 (moderate); M19.90 Unspecified osteoarthritis, unspecified site; Z53.29 Procedure and treatment not carried out because of patient's decision for other reasons; Z82.49 Family history of ischemic heart disease and other diseases of the circulatory system; Z79.82 Long term (current) use of aspirin; Z79.899 Other long term (current) drug therapy

== ENCOUNTER → 2017-08-19 | Outpatient (CLI) | payer OTHER ==
[~2017-08-19] MED LIST changes: +ASPEC81 PO; -ASPI325T39 PO; +BRL90 PO; +CHOL1000 PO; -CHOL100010 PO; +LOSA1TAB PO; +LPR25 PO; +LPT40 PO; +LSX40 PO; -MIDAZOLAM HCL 1 MG/ML 2ML VIAL ONE
[2017-08-19 16:35] LABS: ALBUMIN 3.9 gm/dl (3.4-5.0); ALT/SGPT 38 U/L (12-78); AST/SGOT 25 U/L (15-37); BLOOD UREA NITROGEN 26 mg/dl (7-18); CARBON DIOXIDE 29 mmol/L (21-32); GLUCOSE 87 mg/dl (70-99); POTASSIUM 4.3 mmol/L (3.5-5.1); SODIUM 138 mmol/L (136-145)
[2017-08-19 16:37] LABS: ALKALINE PHOSPHATASE 98 U/L (45-117); TOTAL PROTEIN 7.6 gm/dl (6.4-8.2)
== END | disposition home or self-care (01) ==
LOC: C.LAB1850 15:36
PROVIDERS: ATTEND Physician Assistant
DX: I25.10 Atherosclerotic heart disease of native coronary artery without angina pectoris (principal)